=== PATIENT | female | born 1930 | race Caucasian/White ===

== ENCOUNTER 2016-12-21 11:15 | Inpatient (IN) | payer OTHER ==
[~2016-12-21] VITALS: Ht 160 cm; Wt 71.4 kg
[~2016-12-21 11:15] MED LIST: ASPEC81 PO; DOCU-94 PO; TRAM-10 PO; TYLOTC500 PO
[2016-12-21] MEDS ORDERED: NRV/5 PO (11:40)
[2016-12-21] MEDS ORDERED: POTA10CA28 PO (11:42)
[2016-12-21] MEDS ORDERED: SODIUM CHLORIDE 0.9% 1000ML 1,000 ML IV SCH (11:43)
[2016-12-21] MEDS ORDERED: ULT50X PO (11:43)
[2016-12-21] MEDS ORDERED: DICL1GEL12 (11:43)
[2016-12-21] MEDS ORDERED: ASPI81TA28 PO (11:43)
[2016-12-21 11:54] LABS: BASO % 0.2 %; BASO ABS # 0.02 K/uL (0-0.2); COMPLETE YES; EOS % 5.5 %; HEMATOCRIT 39.3 % (37-47); IG% 0.3 %; LYMPH % 14.2 %; LYMPH ABS # 1.54 K/uL (1.2-3.4); MEAN CELL VOLUME 99.5 fL (80-100); MEAN CORPUSCULAR HEMOGLOBIN 32.2 pg (25-34); MEAN CORPUSCULAR HGB CONC 32.3 g/dl (32-36); MEAN PLATELET VOLUME 11.5 fL (7.4-10.4); MONO % 7.5 %; NEUT % 72.3 %; PLATELET COUNT 649 K/uL (130-400); RED BLOOD COUNT 3.95 M/uL (4.2-5.4); WHITE BLOOD COUNT 10.87 K/uL (4.8-10.8)
[2016-12-21 12:06] LABS: URINE APPEARANCE CLEAR (CLEAR); URINE BILIRUBIN NEG (NEG); URINE COLOR YELLOW; URINE NITRITE NEG (NEG); URINE SPECIFIC GRAVITY 1.008 (1.000-1.030); UROBILINOGEN NEG (NEG); ZZURINE CULT IF INDIC CATH NO
[2016-12-21 12:09] LABS: MANUAL MICROSCOPIC REQUIRED? NO; REVIEW REQ? NO
--- NOTE | 2016-12-21 12:12 | DIAGNOSTIC IMAGING REPORT ---
CT HEAD WITHOUT CONTRAST (CT) CLINICAL HISTORY: Stroke SYNCOPE COMPARISON STUDY: 05/02/2015 TECHNIQUE: Axial CT of the brain is performed from the vertex to the skull base. IV contrast was not administered for this examination. CT DOSE: 537.48 mGy.cm FINDINGS: No intra or extra-axial mass lesions are visualized. There is no CT evidence of acute cortical infarction. There is no evidence of midline shift. There is no acute hemorrhage. No calvarial fractures are visualized. There are patchy white matter hypodensities likely on a small vessel basis. There is no evidence of pathologic ventricular dilatation. There is no evidence of acute sinusitis. There is stable prominence of the frontal extra-axial space, likely secondary to volume loss. IMPRESSION: No acute intracranial findings Electronically signed by: James Mosqueda M.D. 12/21/2016 12:10 PM Dictated Date/Time: 12/21/2016 12:09 PM
[2016-12-21 12:15] LABS: INR 1.1 (0.9-1.1); PARTIAL THROMBOPLASTIN RATIO 1.9; PROTHROMBIN TIME (PATIENT) 12.1 SECONDS (9.0-12.0)
[2016-12-21 12:27] LABS: BUN/CREATININE RATIO 30.1 (10-20); CREATININE 1.8 mg/dl (0.60-1.20); POTASSIUM 3.9 mmol/L (3.5-5.1)
[2016-12-21] MEDS ORDERED: CLON2TAB3 PO (12:32)
[2016-12-21 12:35] LABS: CKMB/CK RATIO 3.2 (0-3.0)
[2016-12-21] MEDS ORDERED: CALC-20 PO (12:36)
[2016-12-21] MEDS ORDERED: ATOR-54 PO (12:36)
[2016-12-21] MEDS ORDERED: PANT1TAB48 PO (12:36)
[2016-12-21] MEDS ORDERED: ASPIRIN 81 MG CHEW PO STA (12:41)
[2016-12-21 13:21] LABS: CALCIUM 9.5 mg/dl (8.5-10.1)
[2016-12-21 13:59] VITALS: BP 148/65; PULSE 69; TEMP 36.6; O2SAT 94; Ht 160 cm; Wt 71.4 kg
[2016-12-21] MEDS ORDERED: NITROGLYCERIN 0.4 MG SL PER TAB CHARGE SL PRN (14:45)
[2016-12-21] MEDS ORDERED: ACETAMINOPHEN 325 MG TAB PO PRN (14:45)
[2016-12-21] MEDS ORDERED: ONDANSETRON INJ 2 MG/ML 2 ML VIAL IV PRN (14:45)
[2016-12-21] MEDS ORDERED: MoRPHine SULFATE 2 MG/ML CARP IV PRN (14:45)
[2016-12-21] MEDS ORDERED: POLYETHYLENE (MIRALAX) 17 GM PACK PO PRN (14:45)
[2016-12-21 14:48] VITALS: BP 156/65; PULSE 74; TEMP 36.9; O2SAT 96
[2016-12-21] MEDS ORDERED: ALBU18002 INH (15:06)
[2016-12-21] MEDS ORDERED: ALBUTEROL HFA 8 GM INHALER INH PRN (15:15)
[2016-12-21] MEDS ORDERED: GABA1CAP PO (15:24)
[2016-12-21] MEDS ORDERED: PARO1TAB29 PO (15:24)
--- NOTE | 2016-12-21 15:39 | History and Physical ---
History & Physical Date & Time of Service: December 21, 2016 at 14:49 Chief Complaint: Syncope Primary Care Physician: Rosa Hampton M.D. History of Present Illness Source: patient, family, clinic records 86 yo female with known CAD s/p CABG in 2014 and h/o AV replacement in 2015 for severe presents today after a syncopal episode while standing in her kitchen opening a can. She reports feeling some chest pain for the past 1-2 weeks in her substernal area that she describes as "like a pencil pushing into my chest. " She states this pain started occurring daily and she cannot identify any provoking factors. She states that in getting the pain, she would sit down, rest and take some deep breaths and the pain would subside. She felt some of this chest pain again today after the event. Her son was present and witnessed the fall. He is not here to give the story, but it is being facilitated by her daughter who is also an RN who works here. There was some urinary incontinence and she did lose consciousness but did not hit her head. There appeared to be some confusion and slurred speech initially which cleared. The patient doesn't remember the fall and states that she felt well and was doing laundry this morning without any issues prior to the fall. She reports feeling fine at this time with no chest pain (resolved only after given aspirin upon arrival to the ER) and no neuro deficits, confusion, difficulty speaking or difficulty ambulating at this time. She otherwise denies any other symptoms of recent illnesses or colds, no UTI symptoms, denies nausea, vomiting, diarrhea, abdominal pain. She denies SOB, lightheadedness or diaphoresis with any of the previous chest pain in the past two weeks. She did have some sweating with the syncopal episode this morning. Past Medical/Surgical History Medical Problems: (1) Aortic valve stenosis Permanent Comment: Severe per echo 11/01/2013 Status: Chronic (2) Carotid stenosis Permanent Comment: Per carotid duplex 10/12/2013- 50-69% stenosis of MEHDI, <50% stenosis of LICA Status: Chronic (3) CKD (chronic kidney disease), stage IV Status: Chronic (4) Diastolic dysfunction Permanent Comment: Per echo 11/01/2013- Grade I diastolic dysfunction Status: Chronic (5) DM type 2 (diabetes mellitus, type 2) Status: Chronic (6) Dyslipidemia Status: Chronic (7) Generalized anxiety disorder Status: Chronic (8) Hypertension Status: Chronic (9) Hypothyroidism Status: Chronic (10) Osteoarthritis Status: Chronic (11) Panic disorder Status: Chronic Surgical Problems: (1) H/O heart bypass surgery Permanent Comment: Apr 2015 Status: Chronic (2) Heart valve replaced Permanent Comment: AV replacement in Apr 2015 Status: Chronic (3) History of carpal tunnel surgery Status: Chronic (4) S/P appendectomy Status: Chronic (5) S/P tonsillectomy Status: Chronic Family History Omitted secondary to age Social History Smoking Status: Former Smoker Smokeless Tobacco Use: No Alcohol Use: none Drug Use: none Marital Status: Housing status: lives with family (lives with daughter and ) Occupational Status: retired Immunizations History of Influenza Vaccine: Yes Influenza Vaccine Date: Jun 05, 2016 History of Tetanus Vaccine?: Yes Tetanus Immunization Date: Aug 09, 2006 History of Pneumococcal: Yes Pneumococcal Date: May 24, 2015 History of Hepatitis B Vaccine: No Multi-Drug Resistant Organisms History of MDRO: No Allergies Coded Allergies: Lorazepam (Verified Adverse Reaction, Intermediate, SEVERE CONFUSION/ SEVERE RAGE, 01/28/16) SUE Inhibitors (Verified Adverse Reaction, Unknown, cough, 01/28/16) Home Medications Scheduled Amlodipine Besylate (Amlodipine Besylate), 2.5 MG PO DAILY Aspirin (Aspirin Ec), 81 MG PO DAILY Atorvastatin (Lipitor), 20 MG PO QAM Calcium Carbonate-Vitamin D (Calcium 600 + D), 1 TAB PO QAM Clonazepam (Klonopin), 2 MG PO HS Furosemide (Lasix), 40 MG PO QAM Gabapentin (Neurontin), 100 MG PO BID Levothyroxine Sodium (Synthroid), 100 MCG PO QAM Losartan Potassium (Cozaar), 25 MG PO BID Metoprolol Tartrate (Lopressor), 12.5 MG PO BID Pantoprazole (Protonix), 40 MG PO QAM Paroxetine (Paxil), 40 MG PO QAM Potassium Chloride (Micro-K Ext Rel), 10 MEQ PO QAM Scheduled PRN Albuterol Sulfate (Proair Respiclick), 2 PUFF INH QID PRN for shortness of breath Tramadol HCl (Tramadol HCl), 50 MG PO Q6 PRN for Pain Miscellaneous Medications Diclofenac Sodium (Topical) (Voltaren 1% Top Gel) Review of Systems ten systems reviewed and negative except as stated in HPI Physical Exam Vital Signs Date Time Temp Pulse Resp B/P Pulse Ox O2 Delivery O2 Flow Rate FiO2 12/21/16 13:59 36.6 69 18 148/65 94 Room Air 12/21/16 13:44 82 18 148/65 94 Room Air 12/21/16 13:34 81 12/21/16 12:51 84 20 147/76 97 Room Air 12/21/16 11:33 86 12/21/16 11:30 36.6 89 18 95 Room Air 12/21/16 11:30 95 Room Air 12/21/16 11:30 36.6 89 18 164/79 95 Room Air 157/78 162/75 GEN: WNWD, in no acute distress, alert and appropriate HEENT: NC/AT, PERRL, normal sclerae/conjunctivae, pharynx non acute, MMM, no JVD CARDIO: reg rate, 3/6 MICHOACANO across precordium, very TTP on R anterior chest, and slightly tender on L anterior chest LUNGS: CTA bilaterally, no crackles, rales or wheezes, good diaphragmatic excursion ABD: soft, non-tender, non-distended, +BS EXTREMITY: RP and DP palpable 2+ bilat, no LE swelling or edema, extremities are warm and well-perfused NEURO: CN 2-12 grossly intact, sensation intact throughout, coordination intact (pt is ambulatory by report-not assessed by me) (reflexes) BR 2/4 bilat, knee 2/4 bilat MUSC: 5/5 strength throughout, no focal deficits SKIN: warm and dry Diagnostics Laboratory Results Results Past 24 Hours Test 12/21/16 11:28 12/21/16 11:35 12/21/16 11:42 Range/Units Urine Color YELLOW Urine Appearance CLEAR CLEAR Urine pH 7.0 4.5-7.5 Urine Specific [place] 1.008 1.000-1.030 Urine Protein NEG NEG Urine Glucose (UA) NEG NEG Urine Ketones NEG NEG Urine Occult Blood NEG NEG Urine Nitrite NEG NEG Urine Bilirubin NEG NEG Urine Urobilinogen NEG NEG Urine Leukocyte Esterase NEG NEG White Blood Count 10.87 4.8-10.8 K/uL Red Blood Count 3.95 4.2-5.4 M/uL Hemoglobin 12.7 12.0-16.0 g/dL Hematocrit 39.3 37-47 % Mean Corpuscular Volume 99.5 80-100 fL Mean Corpuscular Hemoglobin 32.2 25-34 pg Mean Corpuscular Hemoglobin Concent 32.3 32-36 g/dl Platelet Count 649 130-400 K/uL Mean Platelet Volume 11.5 7.4-10.4 fL Neutrophils (%) (Auto) 72.3 % Lymphocytes (%) (Auto) 14.2 % Monocytes (%) (Auto) 7.5 % Eosinophils (%) (Auto) 5.5 % Basophils (%) (Auto) 0.2 % Neutrophils # (Auto) 7.86 1.4-6.5 K/uL Lymphocytes # (Auto) 1.54 1.2-3.4 K/uL Monocytes # (Auto) 0.82 0.11-0.59 K/uL Eosinophils # (Auto) 0.60 0-0.5 K/uL Basophils # (Auto) 0.02 0-0.2 K/uL RDW Standard Deviation 51.3 36.4-46.3 fL RDW Coefficient of Variation 14.1 11.5-14.5 % Immature Granulocyte % (Auto) 0.3 % Immature Granulocyte # (Auto) 0.03 0.00-0.02 K/uL Prothrombin Time 12.1 9.0-12.0 SECONDS Prothromb Time International Ratio 1.1 0.9-1.1 Activated Partial Thromboplast Time 48.5 21.0-31.0 SECONDS Partial Thromboplastin Ratio 1.9 Sodium Level 139 136-145 mmol/L Potassium Level 3.9 3.5-5.1 mmol/L Chloride Level 102 98-107 mmol/L Carbon Dioxide Level 27 21-32 mmol/L Anion Gap 10.0 3-11 mmol/L Blood Urea Nitrogen 54 7-18 mg/dl Creatinine 1.80 0.60-1.20 mg/dl Est Creatinine Clear Calc Drug Dose 21.3 ml/min Estimated GFR () 29.0 Estimated GFR (Non- 25.0 BUN/Creatinine Ratio 30.1 10-20 Random Glucose 122 70-99 mg/dl Calcium Level 9.5 8.5-10.1 mg/dl Total Creatine Kinase 211 26-192 U/L Creatine Kinase MB 6.8 0.5-3.6 ng/ml Creatine Kinase MB Ratio 3.2 0-3.0 Troponin I 0.971 0-0.045 ng/ml Bedside Glucose 111 70-90 mg/dl Microbiology Results 12/21/16 Urine Culture, Received Pending Diagnostic Radiology CT HEAD WITHOUT CONTRAST (CT) CLINICAL HISTORY: Stroke SYNCOPE COMPARISON STUDY: 05/02/2015 TECHNIQUE: Axial CT of the brain is performed from the vertex to the skull base. IV contrast was not administered for this examination. CT DOSE: 537.48 mGy.cm FINDINGS: No intra or extra-axial mass lesions are visualized. There is no CT evidence of acute cortical infarction. There is no evidence of midline shift. There is no acute hemorrhage. No calvarial fractures are visualized. There are patchy white matter hypodensities likely on a small vessel basis. There is no evidence of pathologic ventricular dilatation. There is no evidence of acute sinusitis. There is stable prominence of the frontal extra-axial space, likely secondary to volume loss. IMPRESSION: No acute intracranial findings CXR pending EKG SR, 1AVB, oc PVCs, non-specific conduction block with known h/o LBBB per outpatient cardiology notes. Impression Assessment and Plan 86 yo F with h/o aortic valve replacement and CABG in 2014 presents with syncope this morning 1. Syncope-uncertain cause but etiologies include but not limited to ACS, cardiac arrhythmia, valve abnormality, vasovagal or orthostatic hypotension ( uncertain trigger). The patient is confirmed by daughter who is a nurse that she is not a diabetic, so not on insulin but she was preparing breakfast so might have been hypoglycemic. Ongoing chest pain for past two weeks is concerning for unstable angina and pain is reproducible to palpation. With known history will start empiric heparin drip (TRS is 6), increase Lipitor to 80mg now for plaque stabilization, cont with ASA, cont BB and consult cardiology. Will cont to monitor on telemetry and defer repeat echo evaluation to Cardiology. Of note, there was some possible slurred speech noted today after syncopal episode, however, there was nothing noted that was a focal finding and she is completely neurologically intact at this time, and ambulatory with a negative head CT, so stroke not thought probable at this time. 2. CAD-plan as above. 3. s/p aortic valve replacement 4. CKD-III- creatinine at baseline 5. HTN-controlled on outpatient therapy, defer changes to Cards team 6. Hypothyroidism-will add TSH to bloodwork. Cont Synthroid at current home dose. 7. Gerd-cont PPI 8. Anxiety/panic disorder-cont Clonazepam qHS per home regimen DVT proph-heparin drip FULL CODE Dispo-on quality assurance monitor final Adore Mart [facility] Telemetry Advanced Directives Existing Living Will: Yes Existing Power of Fiberglass Grinder: Yes Resuscitation Status FULL RESUSCITATION VTE Prophylaxis VTE Risk Assessment Done? Y/N: Yes Risk Level: Moderate Given or contraindicated: Other Anticoagulation (heparin drip)
[2016-12-21 15:42] VITALS: BP 155/63; PULSE 68; TEMP 36.7; O2SAT 94
[2016-12-21] MEDS ORDERED: FURO-85 PO (15:44)
[2016-12-21] MEDS ORDERED: LOSA1TAB PO (15:45)
[2016-12-21] MEDS ORDERED: LEVO100T PO (15:45)
[2016-12-21] MEDS ORDERED: LPR25 PO (15:46)
--- NOTE | 2016-12-21 15:48 | DIAGNOSTIC IMAGING REPORT ---
CHEST ONE VIEW PORTABLE CLINICAL HISTORY: Chest pain and syncope COMPARISON STUDY: 01/28/2016 FINDINGS: There are postsurgical changes of a midline sternotomy. The heart is borderline enlarged. There is no failure. There is no focal pulmonary consolidation. No pleural effusions are visualized.[ IMPRESSION: No active disease in the chest. Electronically signed by: James Mosqueda M.D. 12/21/2016 3:47 PM Dictated Date/Time: 12/21/2016 3:46 PM
[2016-12-21] MEDS: HEPARIN 25,000 UNIT/500ML D5W 500 ML IV PRN (15:59)
[2016-12-21 16:02] LABS: BASO % 0.3 %; BASO ABS # 0.03 K/uL (0-0.2); EOS % 2.1 %; HEMATOCRIT 37.1 % (37-47); IG% 0.2 %; LYMPH % 8.6 %; MEAN CELL VOLUME 98.4 fL (80-100); MEAN CORPUSCULAR HEMOGLOBIN 31.3 pg (25-34); MEAN PLATELET VOLUME 10.7 fL (7.4-10.4); MONO % 6.2 %; NEUT % 82.6 %; PLATELET COUNT 588 K/uL (130-400); RED BLOOD COUNT 3.77 M/uL (4.2-5.4); WHITE BLOOD COUNT 11.65 K/uL (4.8-10.8)
[2016-12-21 16:03] LABS: COMPLETE YES; MEAN CORPUSCULAR HGB CONC 31.8 g/dl (32-36)
[2016-12-21 16:18] LABS: INR 1.2 (0.9-1.1); PARTIAL THROMBOPLASTIN RATIO 2.1; PROTHROMBIN TIME (PATIENT) 12.4 SECONDS (9.0-12.0)
[2016-12-21] MEDS ORDERED: NURSING VERBAL MED ORDER ONE (16:45)
--- NOTE | 2016-12-21 16:55 | EMERGENCY ROOM VISIT NOTE ---
History Report prepared by Salvador: Carla Martinez Under the Supervision of: Dr. Taye Ruggiero M.D. 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 Per family, the patient had a syncopal episode this morning and fell backwards. Her did not think that she was breathing. Family is unsure if she hit her head when she fell. EMS was called and the patient was lying on the floor gasping when they arrived. She regained consciousness. The patent states that she feels better now. She is currently complaining of some chest pain, dizziness, weakness, and "plugged" ears. Family reports that she has some slurred speech. Daughter states that the patient has been doing well over the past few days. The patient does have a history of a prosthetic valve replacement. 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 Family reports slurred speech. Review of Systems See HPI for pertinent positives and negatives. A total of ten systems were reviewed and were otherwise negative. Past Medical & Surgical Medical Problems: (1) Aortic valve stenosis (2) Carotid stenosis (3) CKD (chronic kidney disease), stage IV (4) Diastolic dysfunction (5) DM type 2 (diabetes mellitus, type 2) (6) Dyslipidemia (7) Generalized anxiety disorder (8) Hypertension (9) Hypothyroidism (10) Osteoarthritis (11) Panic disorder (12) Syncope and collapse Surgical Problems: (1) H/O heart bypass surgery (2) Heart valve replaced (3) History of carpal tunnel surgery (4) Post-operative state (5) S/P appendectomy (6) S/P tonsillectomy Family History Omitted secondary to age Social History Smoking Status: Former Smoker Alcohol Use: none Marital Status: Housing Status: lives with family Current/Historical Medications Scheduled Amlodipine Besylate (Amlodipine Besylate), 2.5 MG PO DAILY Aspirin (Aspirin Ec), 81 MG PO DAILY Atorvastatin (Lipitor), 20 MG PO QAM Calcium Carbonate-Vitamin D (Calcium 600 + D), 1 TAB PO QAM Clonazepam (Klonopin), 2 MG PO HS Furosemide (Lasix), 40 MG PO QAM Gabapentin (Neurontin), 100 MG PO BID Levothyroxine Sodium (Synthroid), 100 MCG PO QAM Losartan Potassium (Cozaar), 25 MG PO BID Metoprolol Tartrate (Lopressor), 12.5 MG PO BID Pantoprazole (Protonix), 40 MG PO QAM Paroxetine (Paxil), 40 MG PO QAM Potassium Chloride (Micro-K Ext Rel), 10 MEQ PO QAM Scheduled PRN Albuterol Sulfate (Proair Respiclick), 2 PUFF INH QID PRN for shortness of breath Tramadol HCl (Tramadol HCl), 50 MG PO Q6 PRN for Pain Miscellaneous Medications Diclofenac Sodium (Topical) (Voltaren 1% Top Gel) Allergies Coded Allergies: Lorazepam (Verified Adverse Reaction, Intermediate, SEVERE CONFUSION/ SEVERE RAGE, 01/28/16) SUE Inhibitors (Verified Adverse Reaction, Unknown, cough, 01/28/16) Physical Exam Vital Signs Date Time Temp Pulse Resp B/P Pulse Ox O2 Delivery O2 Flow Rate FiO2 12/21/16 12:51 84 20 147/76 97 Room Air 12/21/16 11:33 86 12/21/16 11:30 36.6 89 18 95 Room Air 12/21/16 11:30 95 Room Air 12/21/16 11:30 36.6 89 18 164/79 95 Room Air 157/78 162/75 Physical Exam GENERAL: Awake, alert, tired-appearing, in no distress HENT: Normocephalic, atraumatic. Oropharynx unremarkable. Dry mucus membranes. EYES: Normal conjunctiva. Sclera non-icteric. PERRL, EOMI NECK: Supple. No nuchal rigidity. FROM. No JVD. RESPIRATORY: Clear to auscultation. CARDIAC: Regular rate, normal rhythm. Systolic ejection murmur. Extremities warm and well perfused. Pulses equal. ABDOMEN: Soft, non-distended. No tenderness to palpation. No rebound or guarding. No masses. RECTAL: Deferred. MUSCULOSKELETAL: Chest examination reveals no tenderness. The back is symmetrical on inspection without obvious abnormality. There is no CVA tenderness to palpation. No joint edema. LOWER EXTREMITIES: Calves are equal size bilaterally and non-tender. No edema. No discoloration. NEURO: Normal sensorium. No sensory or motor deficits noted. No drift. Cranial nerves intact. SKIN: No rash or jaundice noted. Medical Decision & Procedures ER Provider Diagnostic Interpretation: A repeat ECG reveals sinus rhythm with 1st degree AV block at 80, rightward axis , nonspecific intraventricular block, nonspecific ST abnormality inferiorly, mild ST elevation anteriorly, unchanged from previous. Radiology results as stated below per my review and radiologist interpretation: CT HEAD WITHOUT CONTRAST (CT) CLINICAL HISTORY: Stroke SYNCOPE COMPARISON STUDY: 05/02/2015 TECHNIQUE: Axial CT of the brain is performed from the vertex to the skull base. IV contrast was not administered for this examination. CT DOSE: 537.48 mGy.cm FINDINGS: No intra or extra-axial mass lesions are visualized. There is no CT evidence of acute cortical infarction. There is no evidence of midline shift. There is no acute hemorrhage. No calvarial fractures are visualized. There are patchy white matter hypodensities likely on a small vessel basis. There is no evidence of pathologic ventricular dilatation. There is no evidence of acute sinusitis. There is stable prominence of the frontal extra-axial space, likely secondary to volume loss. IMPRESSION: No acute intracranial findings Electronically signed by: James Mosqueda M.D. 12/21/2016 12:10 PM Dictated Date/Time: 12/21/2016 12:09 PM Laboratory Results 12/21/16 11:35 Test 12/21/16 11:28 12/21/16 11:35 12/21/16 11:42 Urine Color YELLOW Urine Appearance CLEAR (CLEAR) Urine pH 7.0 (4.5-7.5) Urine Specific [place] 1.008 (1.000-1.030) Urine Protein NEG (NEG) Urine Glucose (UA) NEG (NEG) Urine Ketones NEG (NEG) Urine Occult Blood NEG (NEG) Urine Nitrite NEG (NEG) Urine Bilirubin NEG (NEG) Urine Urobilinogen NEG (NEG) Urine Leukocyte Esterase NEG (NEG) Anion Gap 10.0 mmol/L (3-11) Est Creatinine Clear Calc Drug Dose 21.3 ml/min Estimated GFR () 29.0 Estimated GFR (Non- 25.0 BUN/Creatinine Ratio 30.1 (10-20) Calcium Level 9.5 mg/dl (8.5-10.1) Total Creatine Kinase 211 U/L (26-192) Creatine Kinase MB 6.8 ng/ml (0.5-3.6) Creatine Kinase MB Ratio 3.2 (0-3.0) Troponin I 0.971 ng/ml (0-0.045) Thyroid Stimulating Hormone (TSH) 1.490 uIu/ml (0.300-4.500) Bedside Prothrombin Time INR 1.1 (0.9-1.1) Bedside Glucose 111 mg/dl (70-90) Laboratory results reviewed by me Medications Administered Medications (Trade) Dose Ordered Sig/Carlos Alberto Route Start Time Stop Time Status Last Admin Dose Admin Sodium Chloride (Nss 1000ml) 1,000 ml @ 50 mls/hr Q20H IV 12/21/16 11:43 12/21/16 15:01 DC 12/21/16 11:43 50 MLS/HR Aspirin (Aspirin Chew) 324 mg NOW STAT PO 12/21/16 12:41 12/21/16 12:42 DC 12/21/16 12:56 324 MG ECG Indication: syncope Rate (beats per minute): 86 Rhythm: sinus rhythm Findings: 1st degree AV block, nonspecific-ST abn (Inferior), ST elevation (V2 , V3), other (nonspecific intraventricular block) Comparison ECG Date: 01/28/16 Change: Mild ST elevation in V2 and V3 slightly more prominent, inferior changes are new. ED Course 1139: The patient was evaluated in room C2B. A complete history and physical exam was performed. 1143: NSS 1000 ml @ 50 mls/hr IV 1240: I reevaluated the patient and updated her and the family. 1241: Aspirin 324 mg PO 1257: I spoke with Dr. Mart. We discussed the patient's results and treatment plan. [facility]. 1304: I reassessed the patient at this time. She is feeling better and resting comfortably. I discussed the results and treatment plan with the patient and her family. I answered all pertaining questions that they had. They expressed understanding and verbalized agreement. Medical Decision Triage Nursing notes reviewed. The patient's presentation and history were concerning for syncope and difficulty breathing. Etiologies such as vasovagal event, infection, hypoglycemia, electrolyte abnormalities, cardiac sources, intracerebral event, toxicologic, neurologic, as well as others were entertained. The patient was evaluated. Her history was concerning for a syncopal event. Physically she had no focal neurologic findings to suggest stroke. She underwent a workup which revealed her to have elevated cardiac markers. Her urinalysis and chemistry panel were unremarkable. She had a slight elevation of her white blood cell count. Imaging did not reveal any abnormalities. ECG was performed and was unchanged. Her second ECG was done when she had no chest symptoms. She only noted minimal discomfort at the time of the first ECG. She was given aspirin. She was gently hydrated with fluids. Internal medicine was consulted. Patient's family were updated. She will need further evaluation and management in the hospital. The chart was completed utilizing [employer] Speech voice recognition software. Grammatical errors, random word insertions, pronoun errors, and incomplete sentences are an occasional consequence of this system due to software limitations, ambient noise, and hardware issues. Any formal questions or concerns about the content, text, or information contained within the body of this dictation should be directly addressed to the physician for clarification. Consults Time Called: [phone] Consulting Physician: Dr. Mart Returned Call: [phone] Mart. We discussed the patient's results and treatment plan. The patient will be evaluated by the [facility] for further management. Impression Primary Impression: Syncope Additional Impression: Elevated troponin Scribe Attestation The scribe's documentation has been prepared under my direction and personally reviewed by me in its entirety. I confirm that the note above accurately reflects all work, treatment, procedures, and medical decision making performed by me. Departure Information Dispostion Being Evaluated By Hospitalist Referrals Rosa Hampton M.D. (PCP) Patient Instructions My [facility] Problem Qualifiers Primary Impression: Syncope Syncope type: unspecified Qualified Codes: R55 - Syncope and collapse
[2016-12-21 18:43] LABS: CKMB/CK RATIO 10.2 (0-3.0)
[2016-12-21 20:20] VITALS: BP 148/57; PULSE 56; TEMP 36.8; O2SAT 94
[2016-12-21] MEDS: CALCIUM 600MG + VIT D 400 IU TAB PO SCH (20:45)
[2016-12-21] MEDS: ATORVASTATIN 40 MG TAB PO SCH (20:45)
[2016-12-21] MEDS: GABAPENTIN 100 MG CAP PO SCH (20:46)
[2016-12-21] MEDS: LOSARTAN POTASSIUM 25 MG TAB PO SCH (20:47)
[2016-12-21] MEDS: CLONAZEPAM 1 MG TAB PO SCH (20:48)
[2016-12-21] MEDS: METOPROLOL TARTRATE 25 MG TAB PO SCH (20:51)
[2016-12-21] MEDS ORDERED: HEPARIN SOD 5000 UNIT/0.5 ML CARP SQ SCH (22:00)
[2016-12-21 23:14] LABS: PARTIAL THROMBOPLASTIN RATIO 8.9
[2016-12-22] VITALS (7 sets, daily range): BP systolic 128–161; BP diastolic 56–69; PULSE 55–66; TEMP 36.3–36.8; O2SAT 93–95
[2016-12-22 00:09] LABS: CKMB/CK RATIO 11.6 (0-3.0)
[2016-12-22] MEDS: TRAMADOL HCL 50 MG TAB PO PRN ×2 (00:22→20:32)
[2016-12-22 00:42] LABS: PARTIAL THROMBOPLASTIN RATIO 9.2
[2016-12-22 03:02] LABS: PARTIAL THROMBOPLASTIN RATIO 2.4
[2016-12-22] MEDS: HEPARIN 25,000 UNIT/500ML D5W 500 ML IV PRN ×3 (03:10→20:34)
[2016-12-22] MEDS: LEVOTHYROXINE 100 MCG TAB PO SCH (06:26)
[2016-12-22 06:46] LABS: MEAN CELL VOLUME 99.4 fL (80-100); MEAN CORPUSCULAR HEMOGLOBIN 32.2 pg (25-34); MEAN CORPUSCULAR HGB CONC 32.4 g/dl (32-36); MEAN PLATELET VOLUME 11.2 fL (7.4-10.4); PLATELET COUNT 547 K/uL (130-400); RED BLOOD COUNT 3.42 M/uL (4.2-5.4); WHITE BLOOD COUNT 8.85 K/uL (4.8-10.8)
[2016-12-22 07:22] LABS: CREATININE 1.7 mg/dl (0.60-1.20)
[2016-12-22 07:23] LABS: BUN/CREATININE RATIO 29.7 (10-20); CALCIUM 9.2 mg/dl (8.5-10.1); CHOLESTEROL/HDL RATIO 2.7; MAGNESIUM 2.6 mg/dl (1.8-2.4); POTASSIUM 3.8 mmol/L (3.5-5.1)
[2016-12-22] MEDS ORDERED: ASPIRIN 81 MG ECTAB PO SCH (09:00)
[2016-12-22] MEDS: METOPROLOL TARTRATE 25 MG TAB PO SCH (09:00)
[2016-12-22] MEDS ORDERED: NURSING VERBAL MED ORDER ONE (10:00)
[2016-12-22] MEDS: GABAPENTIN 100 MG CAP PO SCH ×2 (10:05→20:35)
[2016-12-22] MEDS: PAROXETINE 20 MG TAB PO SCH (10:05)
--- NOTE | 2016-12-22 10:05 | Clinical Documentation Query ---
GEE Handley : CLINICAL DOCUMENTATION QUERIES QUERY 1 OF 2 Patient is an 86 year old female admitted s/p syncopal episode occuring the morning of admission at her home. Also noted to have experienced chest pain substernally over the past two weeks, and specifically occurring today after the syncopal event. She was given ASA and maintained on a BB with pending cardiology consultation. A heparin infusion was initiated. Initial cardiac enzymes elevated with troponin of 0.971 ng/ml, further rising to 15.00 ng/ml last evening. Echocardiogram pending. Per ED provider, EKG "Mild ST elevation in V2 and V3 slightly more prominent, inferior changes are new." In your clinical opinion is this patient being managed for: ( ) Non-ST elevation myocardial infarction ( ) STEMI ( ) Other explanation of clinical findings (Please Explain) ( ) Unable to determine (Please Define) ( ) Need to Discuss ( ) Not Agree The medical record reflects the following clinical findings, treatment, and risk factors. Clinical Indicators: As above Treatment:She was given ASA and maintained on a BB with pending cardiology consultation. A heparin infusion was initiated. Initial cardiac enzymes elevated with troponin of 0.971 ng/ml, further rising to 15.00 ng/ml last evening. Echocardiogram pending. Telemetry, cardiology consultation Risk Factors: Age, CAD, hyperlipidemia, DM type 2, hypertension QUERY 2 OF 2 Documentation includes "diastolic dysfunction". Prior echocardiogram (03/15/15) read to include: "1. Left ventricle is mildly dilated with mild LVH. 2. LVEF has decreased, 25-30% with mid to apical areas of akinesis, including the apex. 3. Severe calcific aortic stenosis. Mean gradient 46mmHg, RADHA 0.6cm2. 4. Diastolic dysfunction." Home regimen includes daily Lasix, amlodipine, losartan, and lopressor. As appropriate, please clarify as this directly impacts DRG assignment. Thank you. In your clinical opinion is this patient being managed for: ( ) Chronic combined systolic and diastolic congestive heart failure ( ) Other explanation of clinical findings (Please Explain) ( ) Unable to determine (Please Define) ( ) Need to Discuss ( ) Not Agree The medical record reflects the following clinical findings, treatment, and risk factors. Clinical Indicators: As above, known CAD with known LBBB, "diastolic dysfunction". Treatment: Lasix, amlodipine, losartan, and lopressor, telemetry, cardiology consultation Risk Factors: Age, hypertension, CAD, s/p AVR Please clarify and document your clinical opinion in the progress notes and discharge summary. Terms such as "probable", "suspected", "likely", "questionable", "possible", or "still to be ruled out" are acceptable. IF IN AGREEMENT, YOU MUST DOCUMENT ABOVE DIAGNOSTIC STATEMENT IN DAILY PROGRESS NOTES AND DISCHARGE SUMMARY. This document is not part of the patient's record. Thank You, Frandy Edmond, RN [phone]
[2016-12-22] MEDS: AMLODIPINE BESYLATE 5 MG TAB PO SCH (10:06)
[2016-12-22] MEDS: CALCIUM 600MG + VIT D 400 IU TAB PO SCH ×2 (10:07→20:35)
[2016-12-22] MEDS: FUROSEMIDE 40 MG TAB PO SCH (10:07)
[2016-12-22] MEDS: LOSARTAN POTASSIUM 25 MG TAB PO SCH ×2 (10:07→20:36)
[2016-12-22] MEDS: PANTOprazole SOD 40 MG TAB PO SCH (10:08)
[2016-12-22] MEDS: POTASSIUM CHLORIDE 10 MEQ TABCR PO SCH (10:08)
[2016-12-22] MEDS: ASPIRIN 81 MG ECTAB PO SCH (10:08)
[2016-12-22 10:11] LABS: PARTIAL THROMBOPLASTIN RATIO 6.2
--- NOTE | 2016-12-22 12:12 | CARDIOLOGY CONSULTATION REPORT ---
DATE OF CONSULTATION: 12/22/2016 REASON FOR CONSULTATION: 1. Syncope. 2. Elevated troponin I level. HISTORY OF PRESENT ILLNESS: Ms. Cooper is a very pleasant 86-year-old white female with a longstanding history of aortic valvular stenosis s/p Hernández pericardial AVR 19 mm in 2014, CABG x 3 vessels (GRAHAM to LAD, SVG to OM, and SVG to distal RCA), h/o Cardiomyopathy (EF 25% to 30% in 2014), Hypertension, Hypercholesterolemia, impaired glucose tolerance, and a chronic LBBB, who was admitted acutely on 12/21/2016 following a syncopal episode. Yesterday morning while standing in the kitchen at the sink, doing some work, the patient began to feel "funny." She described as a dizzying sensation and a period of decreased mental clarity/fogginess. She was found as though she needed to sit down. When she turned to go to a chair, she suddenly collapsed on to the floor and sustained a minor bump to the head. She has a small hematoma on the posterior scalp; however, a CT scan was negative. The patient is uncertain how long she was out for, but her was the only witness and he had to go outside to find his son-in-law to come back in and help with Ms. Cooper. Uncertain how long she was unconscious, but most likely for more than a couple of minutes. She subsequently came back around, was sweating profusely, and was mildly confused. The patient does admit to reproducible anterior chest wall pain, which has been present for some time, and that has not changed recently. It is reproducible with palpation. She has not had any "angina," but she did have a significant bump in her troponin I level. The patient offers no other complaints. MEDICATIONS: 1. Aspirin 81 mg a day. 2. Norvasc 2.5 mg daily. 3. Lasix 40 mg daily. 4. Protonix 40 mg daily. 5. Paxil 40 mg daily. 6. KCl 10 mEq daily. 7. Levothyroxine 100 mcg daily. 8. Klonopin 2 mg at bedtime. 9. Neurontin 100 mg b.i.d. 10. Cozaar 25 mg b.i.d. 11. Lopressor 12.5 mg b.i.d. 12. Lipitor 80 mg at bedtime. 13. Vitamin D with calcium 1 tablet b.i.d. 14. Heparin drip. 15. Tramadol 50 mg p.o. q. 6 hours p.r.n. 16. Albuterol 2 puffs p.o. q.i.d. p.r.n. 17. Tylenol p.r.n. 18. Zofran 4 mg IV q. 6 hours p.r.n. 19. Sublingual nitroglycerin p.r.n. 20. Morphine sulfate 2 mg IV q. 2 hours p.r.n. for chest pain. 21. MiraLax p.r.n. ALLERGIES: 1. SUE INHIBITORS. 2. LORAZEPAM. PAST MEDICAL HISTORY: 1. Hypertension. 2. Dyslipidemia. 3. History of aortic stenosis, status post Hernández Magna 19-mm pericardial tissue AVR on 04/26/2015. 4. CAD, status post CABG x3 vessels on 04/26/2015 including GRAHAM to LAD, saphenous vein graft to OM, and saphenous vein graft to distal RCA. 5. Impaired glucose tolerance. 6. Chronic LBBB. 7. Diastolic dysfunction. 8. Hypothyroidism. 9. DJD. 10. Right hip greater trochanteric bursitis. 11. Carotid artery disease. 12. Syncope. 13. History of carpal tunnel release. 14. History of appendectomy. 15. History of tonsillectomy. 16. Cardiomyopathy on echo 2014. SOCIAL HISTORY: The patient is and lives with her . She is a former smoker. Does not use alcohol. FAMILY HISTORY: Noncontributory. PHYSICAL EXAMINATION: VITAL SIGNS: Temperature is 36.7 degrees Celsius, pulse 55 and regular, respiratory rate 18 and unlabored, and blood pressure 152/69. SpO2 is 95% on room air. GENERAL: The patient is in no acute distress. HEENT: A small hematoma is present on the posterior scalp near the vertex. EOMs intact. Sclerae are anicteric. Mucous membranes moist. Face is symmetric. NECK: Without thyromegaly, adenopathy, or JVD. Carotid upstrokes +2 bilaterally. CHEST AND LUNGS: Clear to auscultation throughout all lung stewart. No wheezes, rales or rhonchi. CARDIOVASCULAR SYSTEM: S1 and S2 are regular, bradycardic, with a grade 2/6 crescendo-decrescendo basal systolic murmur best heard over right second intercostal space and radiates to the upper chest and left sternal border. Aortic valve closure sound is audible at both the apex and the base. PMI is not displaced. No lifts, heaves, or thrills. No abdominal aortic or renal bruits. ABDOMEN: Benign. EXTREMITIES: No clubbing, cyanosis or edema. Right greater trochanter tender to palpation. NEUROLOGIC: The patient is awake, alert and interactive. Answers questions appropriately. Speech is clear. Normal movement in bilateral upper and lower extremities. LABORATORY DATA: Sodium is 140 mmol/L, potassium 3.8 mmol/L, BUN 51 mg/dL, creatinine 1.70 mg/dL, random glucose is 113 mg/dL, and serum magnesium 2.6 mg/dL. Total CKs are 519, 383, and 211 units per liter with respect to the CK-MBs of 60.1, 39.2, and 6.8. ng/mL. Troponin I levels are 15.0, 7.010, and 0.971 ng/mL. APTT is 62.7 seconds. TSH on admission was 1.490 uIU/mL. Total cholesterol is 167 mg/dL with an LDL of 84 mg/dL and an HDL of 61 mg/dL. Chest x-ray shows no acute processes. Head CT scan showed no intracranial abnormalities. Telemetry monitoring overnight reveals periods of Mobitz type 2 second degree AV block with significant bradycardia, ventricular rate in the 30s. No longer pauses were present. Echocardiogram is pending. ASSESSMENT: 1. Syncope, likely secondary to Mobitz type 2 second degree AV block, and possibly higher grades of AV block. Need to re-evaluate LV systolic function with repeat echo. 2. Non ST-elevated myocardial infarction by cardiac enzymes, possibly secondary to her syncopal event and significant bradycardia/cardiac pauses. 3. Hypertension. 4. Dyslipidemia. 5. Carotid artery disease. 6. History of Bioprosthetic AVR (Hernández Magna 19-mm pericardial AVR). 7. CAD s/p CABG x 3 vessels in 2014. 8. H/O Cardiomyopathy. 9. Diagnoses mentioned above. PLAN: 1. Discussed with Dr. Castellon, who will also meet with the patient. 2. At this point, the patient has significant evidence of conductive heart disease, which is quite common in patients with known aortic valve disease. I have explained this condition at length with the patient and she verbalized understanding. 3. At this point, the treatment of choice is placement of a dual-chamber pacemaker vs possible AICD (depending on LVEF). I have explained to her how these procedures are done. 4. The patient verbalized understanding on this discussion and agrees to proceed. Her daughter is also present throughout the visit. 5. Continue long-term beta darion, angiotensin receptor darion, high dose statin, aspirin, and calcium-channel darion. 6. Continue Lasix and potassium chloride as directed. 7. May continue heparin drip for the time being. However, would recommend holding heparin 6 hours before appointed pacemaker / AICD placement time. 8. N.p.o. after midnight except for medications due to pacemaker / AICD being placed. 9. We will continue to follow along while hospitalized. BARRIE
[2016-12-22 12:13] LABS: PARTIAL THROMBOPLASTIN RATIO 2.6
--- NOTE | 2016-12-22 14:14 | ECHOCARDIOGRAM REPORT ---
*NOTICE TO RECEIVING LIBERTARIAN AGENCY This information is strictly Confidential and protected under [place] law. [place] law prohibits you from making any further disclosure of this information unless further disclosure is expressly permitted by the written consent of the person to whom it pertains or is authorized by law. A general authorization for the release of medical or other information is not sufficient for this purpose. Hospital accepts no responsibility if the information is made available to any other person, INCLUDING THE PATIENT. Interpretation Summary * Name: PEREZ MEEKS Study Date: 12/22/2016 12:54 PM BP: 143/60 mmHg * Patient Location: [facility]\S\N281\S\1 HR: 67 * : 1930 (M/d/yyyy) Gender: Female Height: 63 in * Age: 86 yrs Ethnicity: [place] Weight: 152 lb * Ordering Physician: Bereket Houser * Referring Physician: Self, Referred * Performed By: Radha Tompkins RCS * * Reason For Study: CAD / LBBB / CARDIOMYOPATHY / NSTEMI * BSA: 1.7 m2 * -- Conclusions -- * There is mild concentric left ventricular hypertrophy. * Left ventricular systolic function is normal. * Grade I diastolic dysfunction, (abnormal relaxation pattern). * The left atrium is moderately dilated. * There is a bioprosthetic aortic valve. * Moderate valvular aortic stenosis. * The transvalvular gradient is high for this valve. * There is moderate mitral annular calcification. * Right ventricular systolic pressure is normal. Procedure Details * A complete two-dimensional transthoracic echocardiogram was performed (2D, M-mode, Doppler and color flow Doppler). Left Ventricle * The left ventricle is normal in size. * There is mild concentric left ventricular hypertrophy. * Left ventricular systolic function is normal. * Ejection Fraction = 55-60%. * Grade I diastolic dysfunction, (abnormal relaxation pattern). * Septal motion is consistent with post-operative state. Right Ventricle * The right ventricle is normal in size and function. Atria * The left atrium is moderately dilated. * The right atrium is mildly dilated. Mitral Valve * There is moderate mitral annular calcification. * Significant mitral regurgitation is absent. Tricuspid Valve * The tricuspid valve is not well visualized, but is grossly normal. * There is mild tricuspid regurgitation. * Right ventricular systolic pressure is normal. Aortic Valve * Moderate valvular aortic stenosis. * There is a bioprosthetic aortic valve. * The transvalvular gradient is high for this valve. Pericardium/Pleural * There is no pericardial effusion. Great Vessels * Normal inferior vena cava diameter and respiratory variation suggests normal central venous pressure. MMode 2D Measurements and Calculations IVSd 1.4 cm IVSs 1.3 cm LVIDd 4.1 cm LVIDs 3.9 cm LVPWd 1.4 cm LVPWs 1.6 cm IVS/LVPW 1.0 FS 5.0 % EDV(Teich) 73.7 ml ESV(Teich) 65.3 ml EF(Teich) 11.4 % EDV(cubed) 68.3 ml ESV(cubed) 58.6 ml EF(cubed) 14.1 % % IVS thick -3.38 % % LVPW thick 16.7 % LV mass(C)d 207.0 grams LV mass(C)dI 120.3 grams/m\S\2 LV mass(C)s 212.5 grams LV mass(C)sI 123.5 grams/m\S\2 SV(Teich) 8.4 ml SI(Teich) 4.9 ml/m\S\2 SV(cubed) 9.7 ml SI(cubed) 5.6 ml/m\S\2 LVOT diam 1.6 cm LVOT area 2.0 cm\S\2 Doppler Measurements and Calculations MV E max jax 124.0 cm/sec MV A max jax 133.7 cm/sec MV E/A 0.93 MV P1/2t max jax 121.2 cm/sec MV P1/2t 93.1 msec MVA(P1/2t) 2.4 cm\S\2 MV dec slope 381.4 cm/sec\S\2 MV dec time 0.28 sec Ao V2 max 339.3 cm/sec Ao max PG 46.0 mmHg Ao max PG (full) 34.0 mmHg Ao V2 mean 230.5 cm/sec Ao mean PG 24.5 mmHg Ao mean PG (full) 17.9 mmHg Ao V2 VTI 77.9 cm RADHA(I,A) 1.1 cm\S\2 RADHA(I,D) 1.1 cm\S\2 RADHA(V,A) 1.0 cm\S\2 RADHA(V,D) 1.0 cm\S\2 LV V1 max PG 12.1 mmHg LV V1 mean PG 6.6 mmHg LV V1 max 173.6 cm/sec LV V1 mean 117.1 cm/sec LV V1 VTI 42.3 cm SV(LVOT) 82.9 ml SI(LVOT) 48.1 ml/m\S\2 PA V2 max 193.0 cm/sec PA max PG 14.9 mmHg TR max jax 254.2 cm/sec
--- NOTE | 2016-12-22 16:35 | Progress Note ---
Internal Med Progress Note Date of Service: December 22, 2016. Provider Documentation: SUBJECTIVE: The patient was seen and examined Denies any symptoms Feels better clinically OBJECTIVE: Vital Signs-as noted below Exam: General-no distress at rest Eyes-normal ENT-normal; Neck-supple Lungs-Clear to auscultate bilaterally Heart-Regular,2/6 ESM AA Abdomen-Benign no masses,bowel sound present Extremities-No edema Neuro-AAOx3 Lab data as noted below. ASSESSMENT & PLAN: Syncope Likely secondary to Mobitz Type II AV block No o more episode since admission Appreciate cardiology input Going to have PPM tomorrow NSTEMI with H/O . CAD s/p CABG x 3 vessels in 2014 Serial Troponin and CK/CKMB elevated significantly Has NSTEMI ECHO::There is mild concentric left ventricular hypertrophy. * Left ventricular systolic function is normal. * Grade I diastolic dysfunction, (abnormal relaxation pattern). * The left atrium is moderately dilated. * There is a bioprosthetic aortic valve. * Moderate valvular aortic stenosis. * The transvalvular gradient is high for this valve. * There is moderate mitral annular calcification. * Right ventricular systolic pressure is normal. * The left ventricle is normal in size. * There is mild concentric left ventricular hypertrophy. * Left ventricular systolic function is normal. * Ejection Fraction = 55-60%. * Grade I diastolic dysfunction, (abnormal relaxation pattern). * Septal motion is consistent with post-operative state. s/p Bioprosthetic aortic valve replacement Has as in ECHO CKD-III- creatinine at baseline Will monitor-slightly better HTN-controlled on outpatient therapy, defer changes to Cards team Hypothyroidism-will add TSH :1.49 Cont Synthroid at current home dose. Gerd-cont PPI Anxiety/panic disorder-cont Clonazepam qHS per home regimen DVT proph-heparin drip FULL CODE DISPOSITION Awaited Vital Signs: Date Time Temp Pulse Resp B/P Pulse Ox O2 Delivery O2 Flow Rate FiO2 12/22/16 15:09 36.8 66 16 161/62 93 Room Air 12/22/16 12:00 Room Air 12/22/16 11:44 36.7 59 18 143/60 93 Room Air 12/22/16 09:45 66 12/22/16 08:00 Room Air 12/22/16 07:19 36.7 55 18 152/69 95 Room Air 12/22/16 04:15 36.6 59 18 128/66 93 Room Air 12/22/16 04:00 Room Air 12/22/16 00:23 36.3 55 17 137/56 95 Room Air 12/22/16 00:00 Room Air 12/21/16 20:20 36.8 56 18 148/57 94 Room Air 12/21/16 20:00 Room Air Lab Results: Results Past 24 Hours Test 12/21/16 17:27 12/21/16 22:07 12/21/16 23:35 12/22/16 00:55 Range/Units Total Creatine Kinase 383 519 26-192 U/L Creatine Kinase MB 39.2 60.1 0.5-3.6 ng/ml Creatine Kinase MB Ratio 10.2 11.6 0-3.0 Troponin I 7.010 15.000 0-0.045 ng/ml Activated Partial Thromboplast Time 234.1 241.1 103.9 21.0-31.0 SECONDS Partial Thromboplastin Ratio 8.9 9.2 4.0 Test 12/22/16 01:49 12/22/16 06:27 12/22/16 09:10 12/22/16 11:27 Range/Units Activated Partial Thromboplast Time 62.7 162.7 21.0-31.0 SECONDS Partial Thromboplastin Ratio 2.4 6.2 White Blood Count 8.85 4.8-10.8 K/uL Red Blood Count 3.42 4.2-5.4 M/uL Hemoglobin 11.0 12.0-16.0 g/dL Hematocrit 34.0 37-47 % Mean Corpuscular Volume 99.4 80-100 fL Mean Corpuscular Hemoglobin 32.2 25-34 pg Mean Corpuscular Hemoglobin Concent 32.4 32-36 g/dl RDW Standard Deviation 52.1 36.4-46.3 fL RDW Coefficient of Variation 14.3 11.5-14.5 % Platelet Count 547 130-400 K/uL Mean Platelet Volume 11.2 7.4-10.4 fL Sodium Level 140 136-145 mmol/L Potassium Level 3.8 3.5-5.1 mmol/L Chloride Level 104 98-107 mmol/L Carbon Dioxide Level 30 21-32 mmol/L Anion Gap 6.0 3-11 mmol/L Blood Urea Nitrogen 51 7-18 mg/dl Creatinine 1.70 0.60-1.20 mg/dl Est Creatinine Clear Calc Drug Dose 22.2 ml/min Estimated GFR () 31.1 Estimated GFR (Non- 26.8 BUN/Creatinine Ratio 29.7 10-20 Random Glucose 113 70-99 mg/dl Calcium Level 9.2 8.5-10.1 mg/dl Magnesium Level 2.6 1.8-2.4 mg/dl Triglycerides Level 108 0-150 mg/dl Cholesterol Level 167 0-200 mg/dl HDL Cholesterol 61 mg/dl LDL Cholesterol, Calculated 84 mg/dl VLDL Cholesterol, Calculated 22 mg/dl Cholesterol/HDL Ratio 2.7 Bedside Glucose 117 70-90 mg/dl Test 12/22/16 11:42 Range/Units Activated Partial Thromboplast Time 68.5 21.0-31.0 SECONDS Partial Thromboplastin Ratio 2.6
[2016-12-22 19:56] LABS: PARTIAL THROMBOPLASTIN RATIO 3.5
[2016-12-22] MEDS: CLONAZEPAM 1 MG TAB PO SCH (20:35)
[2016-12-22] MEDS: ATORVASTATIN 40 MG TAB PO SCH (20:36)
[2016-12-23] VITALS (13 sets, daily range): BP systolic 110–159; BP diastolic 55–83; PULSE 56–95; TEMP 36.5–37.1; O2SAT 92–99
[2016-12-23 03:13] LABS: PARTIAL THROMBOPLASTIN RATIO 3.6
[2016-12-23] MEDS: HEPARIN 25,000 UNIT/500ML D5W 500 ML IV PRN ×2 (03:24→04:28)
[2016-12-23 05:59] LABS: BASO % 0.2 %; BASO ABS # 0.02 K/uL (0-0.2); COMPLETE YES; EOS % 3.9 %; HEMATOCRIT 34.7 % (37-47); IG% 0.1 %; LYMPH % 10.3 %; LYMPH ABS # 0.85 K/uL (1.2-3.4); MEAN CELL VOLUME 98.9 fL (80-100); MEAN CORPUSCULAR HEMOGLOBIN 31.9 pg (25-34); MEAN CORPUSCULAR HGB CONC 32.3 g/dl (32-36); MEAN PLATELET VOLUME 10.6 fL (7.4-10.4); MONO % 11.6 %; NEUT % 73.9 %; PLATELET COUNT 507 K/uL (130-400); RED BLOOD COUNT 3.51 M/uL (4.2-5.4); WHITE BLOOD COUNT 8.22 K/uL (4.8-10.8)
[2016-12-23] MEDS ORDERED: CEFAZOLIN SOD 1000MG/55 ML D5W IV SCH (06:00)
[2016-12-23] MEDS: LEVOTHYROXINE 100 MCG TAB PO SCH (06:07)
[2016-12-23 06:27] LABS: PARTIAL THROMBOPLASTIN RATIO 2.4
[2016-12-23] MEDS: PAROXETINE 20 MG TAB PO SCH (07:52)
[2016-12-23] MEDS: PANTOprazole SOD 40 MG TAB PO SCH (07:52)
[2016-12-23] MEDS: POTASSIUM CHLORIDE 10 MEQ TABCR PO SCH (07:53)
[2016-12-23] MEDS: GABAPENTIN 100 MG CAP PO SCH ×2 (07:53→20:37)
[2016-12-23] MEDS: AMLODIPINE BESYLATE 5 MG TAB PO SCH (07:54)
[2016-12-23] MEDS: ASPIRIN 81 MG ECTAB PO SCH (07:55)
[2016-12-23] MEDS: CALCIUM 600MG + VIT D 400 IU TAB PO SCH ×2 (07:55→20:37)
[2016-12-23] MEDS: LOSARTAN POTASSIUM 25 MG TAB PO SCH ×2 (07:55→20:39)
[2016-12-23] MEDS: FUROSEMIDE 40 MG TAB PO SCH (07:55)
--- NOTE | 2016-12-23 08:17 | Clinical Documentation Query ---
[facility] QUERY Documentation includes "diastolic dysfunction". Prior echocardiogram (03/15/15) read to include: "1. Left ventricle is mildly dilated with mild LVH. 2. LVEF has decreased, 25-30% with mid to apical areas of akinesis, including the apex. 3. Severe calcific aortic stenosis. Mean gradient 46mmHg, RADHA 0.6cm2. 4. Diastolic dysfunction." Home regimen includes daily Lasix, amlodipine, losartan, and lopressor. As appropriate, please clarify as this directly impacts DRG assignment. Thank you. In your clinical opinion is this patient being managed for: ( ) Chronic combined systolic and diastolic congestive heart failure ( ) Other explanation of clinical findings (Please Explain) ( ) Unable to determine (Please Define) ( ) Need to Discuss ( + ) Not Agree I cannot find any evidence of :LVEF has decreased, 25-30% with mid to apical areas of akinesis, including the apex The medical record reflects the following clinical findings, treatment, and risk factors. Clinical Indicators: As above, known CAD with known LBBB, "diastolic dysfunction". Treatment: Lasix, amlodipine, losartan, and lopressor, telemetry, cardiology consultation Risk Factors: Age, hypertension, CAD, s/p AVR Please clarify and document your clinical opinion in the progress notes and discharge summary. Terms such as "probable", "suspected", "likely", "questionable", "possible", or "still to be ruled out" are acceptable. IF IN AGREEMENT, YOU MUST DOCUMENT ABOVE DIAGNOSTIC STATEMENT IN DAILY PROGRESS NOTES AND DISCHARGE SUMMARY. This document is not part of the patient's record. Thank You, Frandy Edmond, RN [phone]
--- NOTE | 2016-12-23 10:30 | CARDIOLOGY PROGRESS NOTE ---
DATE: 12/23/2016 SUBJECTIVE: Mrs. Cooper is resting comfortably in bed without complaints of chest pain, dyspnea, syncope, or presyncope. OBJECTIVE: VITAL SIGNS: Blood pressure 150/70 with a regular pulse of 58. Respiratory rate is 18. The patient is afebrile at 36.8 degrees Celsius. Saturation 94% on room air. NECK: Supple with full carotid upstrokes. No obvious bruits. No jugular venous distention. CARDIOVASCULAR: Reveals a regular rhythm with normal S1 and S2. A 2/6 crescendo-decrescendo systolic murmur is heard loudest at the base. LUNGS: Clear without rales, rhonchi, or wheeze. ABDOMEN: Obese without bruits. EXTREMITIES: Reveal intact radial artery pulses bilaterally. There is no peripheral edema. DATA: CBC notes hemoglobin 11.2, hematocrit 34.7, white count 8.2, platelet count 507,000. Electrolytes note a sodium of 140, potassium 3.8, chloride 104, bicarbonate 30, BUN 51, creatinine 1.7, glucose 113. Troponin I level peaked at 15. CK was 519 with an MB fraction of 60.1. EKG notes sinus bradycardia and a complete left bundle-branch block. There is a rightward axis. recreation manager is benign. Echocardiogram notes normal left ventricular systolic function without wall motion abnormality. Estimated left ventricular ejection fraction is 55%-60%. There is mild left ventricular hypertrophy with evidence of diastolic dysfunction. Bioprosthetic aortic valve has normal function, but an elevated gradient. IMPRESSION AND PLAN: 1. Syncope and collapse -- likely secondary to high-degree AV block. Dr. Griggs has reviewed the case and agrees that a permanent pacemaker is indicated at this time. Hopefully, that will be performed later this afternoon. 2. Elevated troponin, I suspect subendocardial ischemia versus myocardial ischemia from coronary disease. Would be reasonable to discontinue heparin metalizer field operation to the lab this afternoon. No need to restart that medication. Will continue with medical management of her coronary disease. 3. Coronary artery disease -- status post coronary artery bypass graft x3 April 2015. This included an GRAHAM to the LAD, SVG to OM, SVG to the distal right coronary artery. 4. Bioprosthetic AVR -- Hernández Magna 19 mm pericardial tissue valve. This performed in April 2015. As above, Doppler gradient across the aortic valve is somewhat elevated. 5. Hypertension -- controlled. 6. Hypercholesterolemia -- continue statin. 7. Chronic left bundle-branch block.
--- NOTE | 2016-12-23 10:40 | CARDIOLOGY CONSULTATION ---
DATE OF CONSULTATION: 12/23/2016 DATE OF CONSULTATION: 12/23/2016. REFERRING PHYSICIAN: Dr. Marilee Bañuelos. CHIEF COMPLAINT: Syncope. HISTORY OF PRESENT ILLNESS: Mrs. Celeste Cooper is an 86-year-old woman with a history of both coronary and valvular heart disease who appears to have been standing in her kitchen when she suffered a syncopal episode. The patient did not report feeling poorly earlier in the day. She did have a very brief prodrome of dizziness and lightheadedness and is feeling as if she would pass. The patient states that she attempted to hold onto the character, but later felt herself on the floor. Her was close by and did confirm the fact that she was unconscious for a very brief period of time. The patient states that upon awakening, she was somewhat oriented, does remember being transported to the hospital, but had difficulty communicating for a brief period of time. She states that she has not suffered similar episodes in the past. She is not reporting episodes of dizziness recently. There were no additional symptoms associated with these episodes such as significant shortness of breath or chest discomfort. The patient had been performing his usual activities with minimal limitation center bypass surgery nearly 2 years ago. She does not report any sensation of palpitations at that time. She generally does not have symptoms of palpitations. She claims to have been eating and thinking well leading up to this event. At the time of the interview, the patient was feeling well. She denied any symptoms of chest discomfort or dizziness. She denies any sense of palpitations. She denies any recent illnesses that involve fevers or chills and has no significant breathing difficulty while at rest or with activity. PAST MEDICAL HISTORY: 1. Significant for the aforementioned coronary artery disease having undergone surgical revascularized in April 2015. 2. Valvular heart disease including severe aortic stenosis, status post bioprosthetic valve replacement in April 2015. 3. Hypertension. 4. Hyperlipidemia. 5. Prediabetes. 6. History of left ventricular systolic dysfunction. Ejection fraction preoperatively measured in 30% range. 7. Hypothyroidism. 8. Bursitis. PAST SURGICAL HISTORY: Includes the aforementioned "bypass surgery and valve replacement" in 2014, carpal tunnel release, appendectomy, tonsillectomy. OUTPATIENT MEDICATIONS: Include aspirin, amlodipine, furosemide, pantoprazole, paroxetine, levothyroxine, clonazepam, gabapentin, metoprolol, atorvastatin, albuterol on p.r.n. basis and candesartan. MEDICAL ALLERGIES: INCLUDE SUE INHIBITORS AND LORAZEPAM. SOCIAL HISTORY: The patient has a remote history of tobacco abuse, currently not smoking. She denies significant alcohol use. Currently lives independently with her locally. FAMILY HISTORY: Noncontributory given the patient's age, no premature coronary disease. REVIEW OF SYSTEMS: A complete 10-system review of systems was performed and the pertinent positives noted in the history of present illness. The patient did report some diffuse diaphoresis with her episode. Generally speaking, she does not have diaphoresis. Once again she has been eating and drink well. Denies any gastrointestinal illnesses recently. She has not had any recent fevers or chills. Remainder of the review of systems was negative. PHYSICAL EXAMINATION: GENERAL: The patient does not appear in acute distress. She is a pleasant individual who is alert and oriented. Mood and affect appeared normal. She answered all questions appropriately. VITAL SIGNS: Include blood pressure 127/61 with pulse of 58. HEAD, EYES, EARS, NOSE, AND THROAT: Her sclerae are anicteric. Pupils are equal and reactive to light and accommodation. Extraocular movements were intact. Palpation of submandibular region did not reveal any significant lymphadenopathy. The carotids are palpable bilaterally. I did not appreciate any bruits on auscultation. There was no evidence of jugular venous distention. Thyroid was not enlarged. LUNGS: Auscultation of both lung stewart reveal them to be clear. There were no rales, wheezes or rhonchi. She had good respiratory effort without use of accessory muscles. CARDIAC EXAMINATION: Revealed her to be in a regular rhythm. She did have a systolic ejection murmur. PMI was not markedly displaced. She had well-healed sternotomy scar. ABDOMEN: Soft and nontender. EXTREMITIES: Evaluation of both wrists revealed radial pulses that were equal in intensity. There is no evidence of cyanosis or clubbing. Evaluation of lower extremities did not reveal any significant peripheral edema. SKIN: I do not appreciate any rashes on examination today. LABORATORY STUDIES: Include a white cell count of 8.2, hemoglobin of 11.2, platelet count of 507. Sodium is 140, potassium is 3.8, BUN was 51, creatinine was 1.7. Cardiac biomarkers were elevated with the most recent being 15. Echocardiogram was performed yesterday which revealed the patient to have preserved left ventricular systolic function and prosthetic valve with a slightly high gradient in the aortic position. The patient's EKG reveals normal sinus rhythm with left bundle branch block. Review of her telemetry reveals occasional periods of ventricular asystole in one setting, this appeared to be Mobitz I conduction. In another setting this appeared to be Mobitz II conduction. ASSESSMENT AND PLAN: 1. Syncope: The etiology of the patient's syncope is unclear. She does have significant conduction disease and it is not uncommon for patients to undergo aortic valve replacement to have residual conduction problems. Given the Mobitz II conduction seen on telemetry in the event in question would seem reasonable to consider permanent pacing in this situation. There is a possibility this resulted from a tachyarrhythmia. The patient does have a known history of ischemic heart disease. She did have elevated cardiac biomarkers subsequent to this event. It is unclear what the cause or relationship happens to be between these marker elevations and her event. In the absence of reduced left ventricular systolic function would seem most appropriate offer therapy with a simple pacemaker. Did discuss risks, benefits and alternatives with the patient and her daughter and are willing to proceed. We will schedule this for later today. 2. Left bundle-branch block. The patient does have a bundle branch block but preserved left ventricular systolic function and no symptoms of congestive heart failure. No indication for biventricular pacing currently.
[2016-12-23 10:59] LABS: PARTIAL THROMBOPLASTIN RATIO 2.6
[2016-12-23] MEDS ORDERED: NURSING VERBAL MED ORDER ONE (11:30)
--- NOTE | 2016-12-23 11:56 | Progress Note ---
Internal Med Progress Note Date of Service: December 23, 2016. Provider Documentation: SUBJECTIVE: The patient was seen and examined Denies any symptoms Has had dizziness during Physical Therapy No SOB and or Chest pain OBJECTIVE: Vital Signs-as noted below Exam: General-no distress at rest Eyes-normal ENT-normal; Neck-supple Lungs-Clear to auscultate bilaterally Heart-Regular,2/6 ESM AA Abdomen-Benign no masses,bowel sound present Extremities-No edema Neuro-AAOx3 Lab data as noted below. ASSESSMENT & PLAN: Syncope Likely secondary to Mobitz Type II AV block No o more episode since admission Appreciate cardiology input Has had an episode of Dizzy spell today during PT Going to have PPM later today NSTEMI with H/O . CAD s/p CABG x 3 vessels in 2014 Serial Troponin and CK/CKMB elevated significantly Has NSTEMI ECHO::There is mild concentric left ventricular hypertrophy. * Left ventricular systolic function is normal. * Grade I diastolic dysfunction, (abnormal relaxation pattern). * The left atrium is moderately dilated. * There is a bioprosthetic aortic valve. * Moderate valvular aortic stenosis. * The transvalvular gradient is high for this valve. * There is moderate mitral annular calcification. * Right ventricular systolic pressure is normal. * The left ventricle is normal in size. * There is mild concentric left ventricular hypertrophy. * Left ventricular systolic function is normal. * Ejection Fraction = 55-60%. * Grade I diastolic dysfunction, (abnormal relaxation pattern). * Septal motion is consistent with post-operative state. No symptoms of CHF s/p Bioprosthetic aortic valve replacement Has as in ECHO Likely not to need any Anticoagulation CKD-III- creatinine at baseline Will monitor-slightly better Will check again tomorrow HTN-controlled on outpatient therapy, defer changes to Cards team Hypothyroidism-will add TSH :1.49 Cont Synthroid at current home dose. Gerd-cont PPI Anxiety/panic disorder-cont Clonazepam qHS per home regimen DVT proph-heparin drip FULL CODE DISPOSITION Awaited Vital Signs: Date Time Temp Pulse Resp B/P Pulse Ox O2 Delivery O2 Flow Rate FiO2 12/23/16 11:46 36.9 61 18 157/70 95 Room Air 12/23/16 10:27 36.7 63 20 128/72 95 Room Air 12/23/16 08:00 94 Room Air 12/23/16 07:20 36.8 58 18 150/73 94 Room Air 12/23/16 04:05 36.5 56 20 159/83 93 Room Air 12/23/16 04:00 Room Air 12/23/16 00:22 36.5 58 19 127/61 92 Room Air 12/23/16 00:00 Room Air 12/22/16 20:24 36.7 61 16 144/64 93 Room Air 12/22/16 20:00 Room Air 12/22/16 16:00 Room Air 12/22/16 15:09 36.8 66 16 161/62 93 Room Air 12/22/16 12:00 Room Air Lab Results: Results Past 24 Hours Test 12/22/16 19:25 12/23/16 02:23 12/23/16 05:51 12/23/16 10:33 Range/Units Activated Partial Thromboplast Time 91.4 94.2 62.3 66.8 21.0-31.0 SECONDS Partial Thromboplastin Ratio 3.5 3.6 2.4 2.6 White Blood Count 8.22 4.8-10.8 K/uL Red Blood Count 3.51 4.2-5.4 M/uL Hemoglobin 11.2 12.0-16.0 g/dL Hematocrit 34.7 37-47 % Mean Corpuscular Volume 98.9 80-100 fL Mean Corpuscular Hemoglobin 31.9 25-34 pg Mean Corpuscular Hemoglobin Concent 32.3 32-36 g/dl Platelet Count 507 130-400 K/uL Mean Platelet Volume 10.6 7.4-10.4 fL Neutrophils (%) (Auto) 73.9 % Lymphocytes (%) (Auto) 10.3 % Monocytes (%) (Auto) 11.6 % Eosinophils (%) (Auto) 3.9 % Basophils (%) (Auto) 0.2 % Neutrophils # (Auto) 6.07 1.4-6.5 K/uL Lymphocytes # (Auto) 0.85 1.2-3.4 K/uL Monocytes # (Auto) 0.95 0.11-0.59 K/uL Eosinophils # (Auto) 0.32 0-0.5 K/uL Basophils # (Auto) 0.02 0-0.2 K/uL RDW Standard Deviation 51.4 36.4-46.3 fL RDW Coefficient of Variation 14.3 11.5-14.5 % Immature Granulocyte % (Auto) 0.1 % Immature Granulocyte # (Auto) 0.01 0.00-0.02 K/uL
[2016-12-23] MEDS ORDERED: CEFAZOLIN IV 1,000 MG in DEXTROSE 5% 50ML 50 ML IV SCH (12:00)
[2016-12-23] MEDS ORDERED: LIDOCAINE HCL 1% 20 ML VIAL ONE (14:33)
[2016-12-23] MEDS ORDERED: FENTANYL CITRATE INJ 50 MCG/1 ML 2 ML VIAL ONE ×2 (14:33→14:46)
[2016-12-23] MEDS ORDERED: BUPIVACAINE 0.5 % 5 MG/1 ML MPF 30ML VIAL ONE (14:33)
[2016-12-23] MEDS ORDERED: MIDAZOLAM HCL 5 MG/ML 1 ML VIAL ONE ×2 (14:33→14:56)
[2016-12-23] MEDS ORDERED: KEFZOL SPECIAL PROCEDURE STOCK 1 GM ADDVIAL IV ONE (14:35)
[2016-12-23] MEDS ORDERED: OXYCODONE/ACETAMINOPHEN 5-325 TAB PO PRN (16:00)
[2016-12-23] MEDS: CLONAZEPAM 1 MG TAB PO SCH (20:37)
[2016-12-23] MEDS: ATORVASTATIN 40 MG TAB PO SCH (20:38)
[2016-12-23] MEDS: CEFAZOLIN IV 1,000 MG in DEXTROSE 5% 50ML 50 ML IV SCH (23:37)
[2016-12-24] VITALS (8 sets, daily range): BP systolic 135–151; BP diastolic 55–77; PULSE 64–72; TEMP 36.8–37.2; O2SAT 92–96
--- NOTE | 2016-12-24 03:29 | OPERATIVE REPORT ---
DATE OF OPERATION: 12/23/2016 PROCEDURE PERFORMED: Implantation of dual-chamber permanent pacemaker. STAFF HOME LENDING OFFICER: Kendal Griggs MD. INDICATIONS: Mrs. Celeste Cooper is an 86-year-old woman with a history of bypass surgery and an aortic valve replacement. She presented with an episode of syncope and was noted on telemetry to have evidence of Mobitz II conduction. Based on these findings, she was evaluated to consider implantation of a permanent pacemaker for symptomatic nonreversible AV node dysfunction. Dual-chamber device was selected and the patient currently in sinus rhythm and he wished to maintain AV synchrony. PROCEDURE IN DETAIL: The patient was informed of the risks, benefits and alternatives to the intended procedure. She understood such and wished to procedure. She was taken to the electrophysiology suite in a fasting state. A preoperative antibiotic had been administered. The patient was monitored electrocardiographically throughout today's procedure and conscious sedation was administered per protocol. The left deltopectoral area was prepped and draped in the usual sterile fashion. This area was anesthetized using subcutaneous administration of Xylocaine and Marcaine solution. An incision was made, dissection was carried down to the prepectoralis fascia using sharp dissection. Electrocautery was also employed for dissection as well as for hemostasis. A device pocket was fashioned in tissues above the pectoral muscle. Subsequent to this, the left axillary vein was accessed using modified Seldinger technique. A sheath was placed over a guidewire at this site and used to facilitate passage of the pacing lead to the respective chambers under fluoroscopic guidance. This included right atrium and right ventricle leads. Adequate sensing and threshold parameters were obtained prior to active fixation of this lead to the endocardial surface. The proximal portion of the lead was then sutured to the prepectoral fascia using a nonabsorbable suture. The device pocket was irrigated with an antibiotic solution. The lead was then attached to the device. Device and leads were then placed in the pocket and the pocket was closed in 3 layers of absorbable suture. Steri-Strips and sterile dressing were applied. The device was tested noninvasively prior to conclusion of the procedure. The patient tolerated the procedure well. There were no immediate complications. EQUIPMENT USED: 1. 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 2. Right atrial lead, logging tractor operator swamp [employer], model #5076, serial #[id number]. 3. Right ventricular lead, logging tractor operator swamp [employer], model #5076, serial #[id number]. MEASURE DATA: 1. Right atrial lead. P-waves measured 1.8 millivolts, pacing threshold was 1.2 millivolts at 0.4 milliseconds with a pacing impedance of 565 ohms. 2. Right ventricular lead: R-waves measured 13 millivolts, pacing threshold was 0.9 volts at 0.4 milliseconds with a pacing impedance of 1021 ohms. IMPRESSION: 1. Successful implantation of dual-chamber permanent pacemaker. PLAN: The patient will be monitored in the self overnight. Additional dose of antibiotics to be administered. A chest x-ray and re-interrogation of device to be performed in the morning. Should all parameters be adequate and the patient be feeling well, she will be considered for discharge at that time. I attest to the content of the Intraoperative Record and any orders documented therein. Any exceptio ns are noted below.
[2016-12-24] MEDS: CEFAZOLIN IV 1,000 MG in DEXTROSE 5% 50ML 50 ML IV SCH ×2 (05:19→14:30)
[2016-12-24] MEDS: LEVOTHYROXINE 100 MCG TAB PO SCH (05:20)
[2016-12-24 05:56] LABS: PARTIAL THROMBOPLASTIN RATIO 1.8
--- NOTE | 2016-12-24 06:57 | DIAGNOSTIC IMAGING REPORT ---
CHEST 2 VIEWS ROUTINE CLINICAL HISTORY: Chest x-ray status post pacemaker placement COMPARISON STUDY: 12/21/2016 FINDINGS: There are postsurgical changes of midline sternotomy and aortic valve replacement. There has been interval placement of a left subclavian dual-chamber central venous pacemaker. No pneumothorax is visualized. Lead position is unremarkable. There is no focal pulmonary consolidation. There are no pleural effusions.[ IMPRESSION: No evidence of pneumothorax status post placement of a left subclavian dual-chamber central venous pacemaker. Electronically signed by: James Mosqueda M.D. 12/24/2016 6:56 AM Dictated Date/Time: 12/24/2016 6:56 AM
[2016-12-24] MEDS: PAROXETINE 20 MG TAB PO SCH (08:40)
[2016-12-24] MEDS: CALCIUM 600MG + VIT D 400 IU TAB PO SCH (08:40)
[2016-12-24] MEDS: ASPIRIN 81 MG ECTAB PO SCH (08:40)
[2016-12-24] MEDS: POTASSIUM CHLORIDE 10 MEQ TABCR PO SCH (08:40)
[2016-12-24] MEDS: PANTOprazole SOD 40 MG TAB PO SCH (08:40)
[2016-12-24] MEDS: GABAPENTIN 100 MG CAP PO SCH (08:41)
[2016-12-24] MEDS: LOSARTAN POTASSIUM 25 MG TAB PO SCH (08:41)
[2016-12-24] MEDS: FUROSEMIDE 40 MG TAB PO SCH (08:41)
[2016-12-24] MEDS: AMLODIPINE BESYLATE 5 MG TAB PO SCH (08:41)
--- NOTE | 2016-12-24 09:57 | CARDIOLOGY PROGRESS NOTE ---
DATE: 12/24/2016 SUBJECTIVE: Mrs. Cooper is resting comfortably in bed without complaints of chest pain or dyspnea. Postoperative pain is adequately controlled. She is anxious for hospital discharge. OBJECTIVE: VITAL SIGNS: Blood pressure 135/55 with a regular pulse of 60. Respiratory rate is 16. The patient is afebrile at 37.2 degree Celsius. Saturation is 92% on room air. NECK: Supple with full carotid upstrokes. No obvious bruits. No jugular venous distention. CARDIOVASCULAR: Reveals a regular rhythm with normal S1 and S2. 2/6 crescendo-decrescendo systolic murmur is heard loudest at the base. LUNGS: Clear without rales, rhonchi, or wheezes. ABDOMEN: Obese without bruits. CHEST: Reveals a palpable device in the left subclavicular region. The incision is dressed. EXTREMITIES: Reveal intact radial artery pulses bilaterally. There is no peripheral edema. LABORATORY DATA: CBC notes hemoglobin of 11.2, hematocrit 34.7, white count 8.2, and platelet count 507,000. Electrolytes note a sodium of 140, potassium 3.8, chloride 104, bicarb 30, BUN 51, creatinine 1.7, and glucose 113. LDL cholesterol is 84 with an HDL of 61. ekg monitor tech notes appropriate pacing. IMPRESSION AND PLAN: 1. Status post DDD pacemaker -- management per Dr. Griggs. 2. Syncope -- likely secondary to Mobitz type 2 AV block and prolonged pauses. Pacemaker implanted as above. 3. Increased troponin -- likely subendocardial ischemia at the time of her presentation. Would recommend restarting beta darion. 4. Coronary artery disease -- status post coronary artery bypass graft x3 in April 2015. Anatomy noted yesterday. 5. Bioprosthetic AVR - April 2015. Doppler gradients at the time of her echocardiogram were somewhat elevated. However, this is a 19-mm, small pericardial tissue valve. 6. Hypertension -- controlled. 7. Hypercholesterolemia -- continue statin. 8. Chronic left bundle branch block.
--- NOTE | 2016-12-24 11:12 | Progress Note ---
Internal Med Progress Note Date of Service: December 24, 2016. Provider Documentation: SUBJECTIVE: The patient was seen and examined Denies any symptoms Has had dizziness during Physical Therapy S/P DDD PM 0n 12/23/16 Denies any symptoms OBJECTIVE: Vital Signs-as noted below Exam: General-no distress at rest Eyes-normal ENT-normal; Neck-supple Lungs-Clear to auscultate bilaterally Heart-Regular,2/6 ESM AA Abdomen-Benign no masses,bowel sound present Extremities-No edema Neuro-AAOx3 Lab data as noted below. ASSESSMENT & PLAN: Syncope Likely secondary to Mobitz Type II AV block No o more episode since admission Appreciate cardiology input Has had an episode of Dizzy spell today during PT S/P DDD PM placed on 12/23/16 Denies any symptoms Ambulating well NSTEMI with H/O . CAD s/p CABG x 3 vessels in 2014 Serial Troponin and CK/CKMB elevated significantly Has NSTEMI ECHO::There is mild concentric left ventricular hypertrophy. * Left ventricular systolic function is normal. * Grade I diastolic dysfunction, (abnormal relaxation pattern). * The left atrium is moderately dilated. * There is a bioprosthetic aortic valve. * Moderate valvular aortic stenosis. * The transvalvular gradient is high for this valve. * There is moderate mitral annular calcification. * Right ventricular systolic pressure is normal. * The left ventricle is normal in size. * There is mild concentric left ventricular hypertrophy. * Left ventricular systolic function is normal. * Ejection Fraction = 55-60%. * Grade I diastolic dysfunction, (abnormal relaxation pattern). * Septal motion is consistent with post-operative state. No symptoms of CHF Will restart BB s/p Bioprosthetic aortic valve replacement Has as in ECHO Likely not to need any Anticoagulation CKD-III- creatinine at baseline Will monitor-slightly better Will check again tomorrow-pending HTN-controlled on outpatient therapy, defer changes to Cards team Remains stable Hypothyroidism-will add TSH :1.49 Cont Synthroid at current home dose. Gerd-cont PPI Anxiety/panic disorder-cont Clonazepam qHS per home regimen DVT proph-heparin drip FULL CODE DISPOSITION Discharge home today Vital Signs: Date Time Temp Pulse Resp B/P Pulse Ox O2 Delivery O2 Flow Rate FiO2 12/24/16 09:56 68 95 12/24/16 07:35 37.2 68 16 135/55 92 Room Air 12/24/16 04:00 Room Air 12/24/16 03:58 37.0 64 17 148/59 93 Room Air 12/24/16 00:43 37.1 69 17 136/65 92 Room Air 12/23/16 23:59 Room Air 12/23/16 20:44 88 110/65 12/23/16 20:00 99 Room Air 3.0 12/23/16 19:34 36.8 95 18 153/70 99 12/23/16 16:45 63 20 128/55 94 Room Air 12/23/16 16:00 98 Room Air 12/23/16 16:00 98 Room Air 12/23/16 16:00 36.5 70 11 136/62 98 Room Air 12/23/16 15:46 66 16 118/66 99 Nasal Cannula 3 12/23/16 15:35 67 16 112/58 99 Nasal Cannula 3 12/23/16 12:00 94 Room Air 12/23/16 11:46 36.9 61 18 157/70 95 Room Air Lab Results: Results Past 24 Hours Test 12/24/16 05:18 Range/Units Activated Partial Thromboplast Time 47.4 21.0-31.0 SECONDS Partial Thromboplastin Ratio 1.8
[2016-12-24 12:07] LABS: BUN/CREATININE RATIO 25.6 (10-20); CALCIUM 9.3 mg/dl (8.5-10.1); CREATININE 1.7 mg/dl (0.60-1.20); MAGNESIUM 2.4 mg/dl (1.8-2.4); POTASSIUM 4.3 mmol/L (3.5-5.1)
--- NOTE | 2016-12-24 12:07 | CARDIOLOGY PROGRESS NOTE ---
DATE: 12/24/2016 DATE: 12/24/2016. SUBJECTIVE: Mrs. Cooper has some mild discomfort at the implant site. Evaluation of the wound reveals minimal ecchymosis and only some mild swelling without evidence of significant hematoma. I reviewed her chest x-ray which reveals stable placement of the atrial ventricular leads without evidence of pneumothorax. Device interrogation was also performed this morning which reveals normal device function. IMPRESSION: 1. Successful implantation of dual chamber permanent pacemaker without complications. 2. Certainly fine for discharge from a pacemaker standpoint, the patient should refrain from lifting the left arm above the shoulder for 6 weeks' time and keep the wound dry for 1 week with the steri-strips intact. The patient should follow up in pacemaker clinic in a period of 1 week for wound evaluation.
[2016-12-24] MEDS ORDERED: LPT40 PO (14:04)
--- NOTE | 2016-12-24 14:06 | Discharge Instructions ---
Discharge Instructions Date of Service December 24, 2016. Admission Reason for Admission: Syncope And Collapse Discharge Discharge Diagnosis / Problem: Heart Block s/p PPM,NSTEMI Discharge Goals Goal(s): Prevent Disease Progression Activity Recommendations Activity Limitations: resume your previous activity . Instructions / Follow-Up Instructions / Follow-Up Dr Hampton on 12/29/16 at 10:25 AM.Please keep appointment with the Interactive Designer Current Hospital Diet Patient's current hospital diet: AHA Diet (Heart Healthy) Discharge Diet Recommended Diet: AHA Diet (Heart Healthy) Pending Studies Studies pending at discharge: no Laboratory Results Lipid Panel Test 12/22/16 06:27 Range/Units Triglycerides Level 108 0-150 mg/dl Cholesterol Level 167 0-200 mg/dl HDL Cholesterol 61 mg/dl Cholesterol/HDL Ratio 2.7 LDL Cholesterol, Calculated 84 mg/dl Medical Emergencies . Who to Call and When: Medical Emergencies: If at any time you feel your situation is an emergency, please call 911 immediately. . Non-Emergent Contact Non-Emergency issues call your: Primary Care Provider . 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 "Provider Documentation" section prepared by Marilee Bañuelos. . VTE Core Measure Inpt VTE Proph given/why not?: Other Anticoagulation (Heparin IV)
--- NOTE | 2016-12-25 09:16 | Discharge Summary ---
Discharge Summary Date of Service December 25, 2016. Discharge Summary Admission Date: December 21, 2016 at 13:23 Discharge Date: December 24, 2016 Discharge Disposition: Home Principal Diagnosis: Heart Block s/p PPM,NSTEMI Secondary Diagnoses/Problems: Please see H&P and Hospital Progress note Consultations: Cardiology Medication Reconciliation New Medications: Atorvastatin (Atorvastatin Calcium) 40 Mg Tab 80 MG PO HS for 30 Days, #60 TAB Continued Medications: Albuterol Sulfate (Proair Respiclick) 108 Mcg/Act Aer 2 PUFF INH QID PRN for shortness of breath Amlodipine Besylate (Amlodipine Besylate) 5 Mg Tab 2.5 MG PO DAILY Aspirin (Aspirin Ec) 81 Mg Tab 81 MG PO DAILY Calcium Carbonate-Vitamin D (Calcium 600 + D) 1 Tab Tab 1 TAB PO QAM Clonazepam (Klonopin) 2 Mg Tab 2 MG PO HS Diclofenac Sodium (Topical) (Voltaren 1% Top Gel) 1 % Gel Furosemide (Lasix) 20 Mg Tab 40 MG PO QAM, TAB Gabapentin (Neurontin) 100 Mg Cap 100 MG PO BID Levothyroxine Sodium (Synthroid) 100 Mcg Tab 100 MCG PO QAM, TAB Losartan Potassium (Cozaar) 25 Mg Tab 25 MG PO BID, TAB Metoprolol Tartrate (Lopressor) 25 Mg Tab 12.5 MG PO BID, #30 Pantoprazole (Protonix) 40 Mg Tab 40 MG PO QAM, #30 TAB Paroxetine (Paxil) 40 Mg Tab 40 MG PO QAM Potassium Chloride (Micro-K Ext Rel) 10 Meq Capcr 10 MEQ PO QAM, CAP Tramadol HCl (Tramadol HCl) 50 Mg Tab 50 MG PO Q6 PRN for Pain Discontinued Medications: Atorvastatin (Lipitor) 20 Mg Tab 20 MG PO QAM, TAB Admission Information HPI (per Admitting provider): 86 yo female with known CAD s/p CABG in 2015 and h/o AV replacement in 2015 for severe presents today after a syncopal episode while standing in her kitchen opening a can. She reports feeling some chest pain for the past 1-2 weeks in her substernal area that she describes as "like a pencil pushing into my chest. " She states this pain started occurring daily and she cannot identify any provoking factors. She states that in getting the pain, she would sit down, rest and take some deep breaths and the pain would subside. She felt some of this chest pain again today after the event. Her son was present and witnessed the fall. He is not here to give the story, but it is being facilitated by her daughter who is also an RN who works here. There was some urinary incontinence and she did lose consciousness but did not hit her head. There appeared to be some confusion and slurred speech initially which cleared. The patient doesn't remember the fall and states that she felt well and was doing laundry this morning without any issues prior to the fall. She reports feeling fine at this time with no chest pain (resolved only after given aspirin upon arrival to the ER) and no neuro deficits, confusion, difficulty speaking or difficulty ambulating at this time. She otherwise denies any other symptoms of recent illnesses or colds, no UTI symptoms, denies nausea, vomiting, diarrhea, abdominal pain. She denies SOB, lightheadedness or diaphoresis with any of the previous chest pain in the past two weeks. She did have some sweating with the syncopal episode this morning. Past Medical/Surgical History Medical Problems: (1) Aortic valve stenosis Permanent Comment: Severe per echo 11/01/2013 Status: Chronic (2) Carotid stenosis Permanent Comment: Per carotid duplex 10/12/2013- 50-69% stenosis of MEHDI, <50% stenosis of LICA Status: Chronic (3) CKD (chronic kidney disease), stage IV Status: Chronic (4) Diastolic dysfunction Permanent Comment: Per echo 11/01/2013- Grade I diastolic dysfunction Status: Chronic (5) DM type 2 (diabetes mellitus, type 2) Status: Chronic (6) Dyslipidemia Status: Chronic (7) Generalized anxiety disorder Status: Chronic (8) Hypertension Status: Chronic (9) Hypothyroidism Status: Chronic (10) Osteoarthritis Status: Chronic (11) Panic disorder Status: Chronic Surgical Problems: (1) H/O heart bypass surgery Permanent Comment: Apr 2015 Status: Chronic (2) Heart valve replaced Permanent Comment: AV replacement in Apr 2015 Status: Chronic (3) History of carpal tunnel surgery Status: Chronic (4) S/P appendectomy Status: Chronic (5) S/P tonsillectomy Status: Chronic Family History Omitted secondary to age Social History Smoking Status: Former Smoker Smokeless Tobacco Use: No Alcohol Use: none Drug Use: none Marital Status: Housing status: lives with family (lives with daughter and ) Occupational Status: retired Immunizations History of Influenza Vaccine: Yes Influenza Vaccine Date: Jun 05, 2016 History of Tetanus Vaccine?: Yes Tetanus Immunization Date: Aug 09, 2006 History of Pneumococcal: Yes Pneumococcal Date: May 24, 2015 History of Hepatitis B Vaccine: No Multi-Drug Resistant Organisms History of MDRO: No Allergies Coded Allergies: Lorazepam (Verified Adverse Reaction, Intermediate, SEVERE CONFUSION/ SEVERE RAGE, 01/28/16) SUE Inhibitors (Verified Adverse Reaction, Unknown, cough, 01/28/16) Home Medications Scheduled Amlodipine Besylate (Amlodipine Besylate), 2.5 MG PO DAILY Aspirin (Aspirin Ec), 81 MG PO DAILY Atorvastatin (Lipitor), 20 MG PO QAM Calcium Carbonate-Vitamin D (Calcium 600 + D), 1 TAB PO QAM Clonazepam (Klonopin), 2 MG PO HS Furosemide (Lasix), 40 MG PO QAM Gabapentin (Neurontin), 100 MG PO BID Levothyroxine Sodium (Synthroid), 100 MCG PO QAM Losartan Potassium (Cozaar), 25 MG PO BID Metoprolol Tartrate (Lopressor), 12.5 MG PO BID Pantoprazole (Protonix), 40 MG PO QAM Paroxetine (Paxil), 40 MG PO QAM Potassium Chloride (Micro-K Ext Rel), 10 MEQ PO QAM Scheduled PRN Albuterol Sulfate (Proair Respiclick), 2 PUFF INH QID PRN for shortness of breath Tramadol HCl (Tramadol HCl), 50 MG PO Q6 PRN for Pain Miscellaneous Medications Diclofenac Sodium (Topical) (Voltaren 1% Top Gel) Review of Systems ten systems reviewed and negative except as stated in HPI Physical Exam Vital Signs Date Time Temp Pulse Resp B/P Pulse Ox O2 Delivery O2 Flow Rate FiO2 12/21/16 13:59 36.6 69 18 148/65 94 Room Air 12/21/16 13:44 82 18 148/65 94 Room Air 12/21/16 13:34 81 12/21/16 12:51 84 20 147/76 97 Room Air 12/21/16 11:33 86 12/21/16 11:30 36.6 89 18 95 Room Air 12/21/16 11:30 95 Room Air 12/21/16 11:30 36.6 89 18 164/79 95 Room Air 157/78 162/75 GEN: WNWD, in no acute distress, alert and appropriate HEENT: NC/AT, PERRL, normal sclerae/conjunctivae, pharynx non acute, MMM, no JVD CARDIO: reg rate, 3/6 MICHOACANO across precordium, very TTP on R anterior chest, and slightly tender on L anterior chest LUNGS: CTA bilaterally, no crackles, rales or wheezes, good diaphragmatic excursion ABD: soft, non-tender, non-distended, +BS EXTREMITY: RP and DP palpable 2+ bilat, no LE swelling or edema, extremities are warm and well-perfused NEURO: CN 2-12 grossly intact, sensation intact throughout, coordination intact (pt is ambulatory by report-not assessed by me) (reflexes) BR 2/4 bilat, knee 2/4 bilat MUSC: 5/5 strength throughout, no focal deficits SKIN: warm and dry Diagnostics Laboratory Results Results Past 24 Hours Test 12/21/16 11:28 12/21/16 11:35 12/21/16 11:42 Range/Units Urine Color YELLOW Urine Appearance CLEAR CLEAR Urine pH 7.0 4.5-7.5 Urine Specific [place] 1.008 1.000-1.030 Urine Protein NEG NEG Urine Glucose (UA) NEG NEG Urine Ketones NEG NEG Urine Occult Blood NEG NEG Urine Nitrite NEG NEG Urine Bilirubin NEG NEG Urine Urobilinogen NEG NEG Urine Leukocyte Esterase NEG NEG White Blood Count 10.87 4.8-10.8 K/uL Red Blood Count 3.95 4.2-5.4 M/uL Hemoglobin 12.7 12.0-16.0 g/dL Hematocrit 39.3 37-47 % Mean Corpuscular Volume 99.5 80-100 fL Mean Corpuscular Hemoglobin 32.2 25-34 pg Mean Corpuscular Hemoglobin Concent 32.3 32-36 g/dl Platelet Count 649 130-400 K/uL Mean Platelet Volume 11.5 7.4-10.4 fL Neutrophils (%) (Auto) 72.3 % Lymphocytes (%) (Auto) 14.2 % Monocytes (%) (Auto) 7.5 % Eosinophils (%) (Auto) 5.5 % Basophils (%) (Auto) 0.2 % Neutrophils # (Auto) 7.86 1.4-6.5 K/uL Lymphocytes # (Auto) 1.54 1.2-3.4 K/uL Monocytes # (Auto) 0.82 0.11-0.59 K/uL Eosinophils # (Auto) 0.60 0-0.5 K/uL Basophils # (Auto) 0.02 0-0.2 K/uL RDW Standard Deviation 51.3 36.4-46.3 fL RDW Coefficient of Variation 14.1 11.5-14.5 % Immature Granulocyte % (Auto) 0.3 % Immature Granulocyte # (Auto) 0.03 0.00-0.02 K/uL Prothrombin Time 12.1 9.0-12.0 SECONDS Prothromb Time International Ratio 1.1 0.9-1.1 Activated Partial Thromboplast Time 48.5 21.0-31.0 SECONDS Partial Thromboplastin Ratio 1.9 Sodium Level 139 136-145 mmol/L Potassium Level 3.9 3.5-5.1 mmol/L Chloride Level 102 98-107 mmol/L Carbon Dioxide Level 27 21-32 mmol/L Anion Gap 10.0 3-11 mmol/L Blood Urea Nitrogen 54 7-18 mg/dl Creatinine 1.80 0.60-1.20 mg/dl Est Creatinine Clear Calc Drug Dose 21.3 ml/min Estimated GFR () 29.0 Estimated GFR (Non- 25.0 BUN/Creatinine Ratio 30.1 10-20 Random Glucose 122 70-99 mg/dl Calcium Level 9.5 8.5-10.1 mg/dl Total Creatine Kinase 211 26-192 U/L Creatine Kinase MB 6.8 0.5-3.6 ng/ml Creatine Kinase MB Ratio 3.2 0-3.0 Troponin I 0.971 0-0.045 ng/ml Bedside Glucose 111 70-90 mg/dl Microbiology Results 12/21/16 Urine Culture, Received Pending Diagnostic Radiology CT HEAD WITHOUT CONTRAST (CT) CLINICAL HISTORY: Stroke SYNCOPE COMPARISON STUDY: 05/02/2015 TECHNIQUE: Axial CT of the brain is performed from the vertex to the skull base. IV contrast was not administered for this examination. CT DOSE: 537.48 mGy.cm FINDINGS: No intra or extra-axial mass lesions are visualized. There is no CT evidence of acute cortical infarction. There is no evidence of midline shift. There is no acute hemorrhage. No calvarial fractures are visualized. There are patchy white matter hypodensities likely on a small vessel basis. There is no evidence of pathologic ventricular dilatation. There is no evidence of acute sinusitis. There is stable prominence of the frontal extra-axial space, likely secondary to volume loss. IMPRESSION: No acute intracranial findings CXR pending EKG SR, 1AVB, oc PVCs, non-specific conduction block with known h/o LBBB per outpatient cardiology notes. Impression Assessment and Plan 86 yo F with h/o aortic valve replacement and CABG in 2014 presents with syncope this morning 1. Syncope-uncertain cause but etiologies include but not limited to ACS, cardiac arrhythmia, valve abnormality, vasovagal or orthostatic hypotension ( uncertain trigger). The patient is confirmed by daughter who is a nurse that she is not a diabetic, so not on insulin but she was preparing breakfast so might have been hypoglycemic. Ongoing chest pain for past two weeks is concerning for unstable angina and pain is reproducible to palpation. With known history will start empiric heparin drip (TRS is 6), increase Lipitor to 80mg now for plaque stabilization, cont with ASA, cont BB and consult cardiology. Will cont to monitor on telemetry and defer repeat echo evaluation to Cardiology. Of note, there was some possible slurred speech noted today after syncopal episode, however, there was nothing noted that was a focal finding and she is completely neurologically intact at this time, and ambulatory with a negative head CT, so stroke not thought probable at this time. 2. CAD-plan as above. 3. s/p aortic valve replacement 4. CKD-III- creatinine at baseline 5. HTN-controlled on outpatient therapy, defer changes to Cards team 6. Hypothyroidism-will add TSH to bloodwork. Cont Synthroid at current home dose. 7. Gerd-cont PPI 8. Anxiety/panic disorder-cont Clonazepam qHS per home regimen DVT proph-heparin drip FULL CODE Dispo-on surveillance monitor Adore Mart DO [facility] Hospitalist Level of Care Telemetry Advanced Directives Existing Living Will: Yes Existing Power of Dough Molder: Yes Resuscitation Status FULL RESUSCITATION VTE Prophylaxis VTE Risk Assessment Done? Y/N: Yes Risk Level: Moderate Given or contraindicated: Other Anticoagulation (heparin drip) <Electronically signed by Adore Mart DO> Physical Exam (per Admitting): GEN: WNWD, in no acute distress, alert and appropriate HEENT: NC/AT, PERRL, normal sclerae/conjunctivae, pharynx non acute, MMM, no JVD CARDIO: reg rate, 3/6 MICHOACANO across precordium, very TTP on R anterior chest, and slightly tender on L anterior chest LUNGS: CTA bilaterally, no crackles, rales or wheezes, good diaphragmatic excursion ABD: soft, non-tender, non-distended, +BS EXTREMITY: RP and DP palpable 2+ bilat, no LE swelling or edema, extremities are warm and well-perfused NEURO: CN 2-12 grossly intact, sensation intact throughout, coordination intact (pt is ambulatory by report-not assessed by me) (reflexes) BR 2/4 bilat, knee 2/4 bilat MUSC: 5/5 strength throughout, no focal deficits SKIN: warm and dry Hospital Course Syncope Likely secondary to Mobitz Type II AV block No o more episode since admission Appreciate cardiology input Has had an episode of Dizzy spell today during PT S/P DDD PM placed on 12/23/16 Denies any symptoms Ambulating well NSTEMI with H/O . CAD s/p CABG x 3 vessels in 2014 Serial Troponin and CK/CKMB elevated significantly Has NSTEMI ECHO::There is mild concentric left ventricular hypertrophy. * Left ventricular systolic function is normal. * Grade I diastolic dysfunction, (abnormal relaxation pattern). * The left atrium is moderately dilated. * There is a bioprosthetic aortic valve. * Moderate valvular aortic stenosis. * The transvalvular gradient is high for this valve. * There is moderate mitral annular calcification. * Right ventricular systolic pressure is normal. * The left ventricle is normal in size. * There is mild concentric left ventricular hypertrophy. * Left ventricular systolic function is normal. * Ejection Fraction = 55-60%. * Grade I diastolic dysfunction, (abnormal relaxation pattern). * Septal motion is consistent with post-operative state. No symptoms of CHF Will restart BB s/p Bioprosthetic aortic valve replacement Has as in ECHO Likely not to need any Anticoagulation CKD-III- creatinine at baseline Will monitor-slightly better Will check again tomorrow-pending HTN-controlled on outpatient therapy, defer changes to Cards team Remains stable Hypothyroidism-will add TSH :1.49 Cont Synthroid at current home dose. Gerd-cont PPI Anxiety/panic disorder-cont Clonazepam qHS per home regimen DVT proph-heparin drip FULL CODE DISPOSITION Discharge home today Total time spent on discharge = 35 minutes This includes examination of the patient, discharge planning, medication reconciliation, and communication with other providers. Discharge Instructions Date of Service December 24, 2016. Admission Reason for Admission: Syncope And Collapse Discharge Discharge Diagnosis / Problem: Heart Block s/p PPM,NSTEMI Discharge Goals Goal(s): Prevent Disease Progression Activity Recommendations Activity Limitations: resume your previous activity . Instructions / Follow-Up Instructions / Follow-Up Dr Hampton on 12/29/16 at 10:25 AM.Please keep appointment with the [employer] [facility] Current Hospital Diet Patient's current hospital diet: AHA Diet (Heart Healthy) Discharge Diet Recommended Diet: AHA Diet (Heart Healthy) Pending Studies Studies pending at discharge: no Laboratory Results Lipid Panel Test 12/22/16 06:27 Range/Units Triglycerides Level 108 0-150 mg/dl Cholesterol Level 167 0-200 mg/dl HDL Cholesterol 61 mg/dl Cholesterol/HDL Ratio 2.7 LDL Cholesterol, Calculated 84 mg/dl Medical Emergencies . Who to Call and When: Medical Emergencies: If at any time you feel your situation is an emergency, please call 911 immediately. . Non-Emergent Contact Non-Emergency issues call your: Primary Care Provider . 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 "Provider Documentation" section prepared by Marilee Bañuelos. . VTE Core Measure Inpt VTE Proph given/why not?: Other Anticoagulation (Heparin IV) <Electronically signed by Marilee Bañuelos M.D.> Additional Copies To Rosa Hampton M.D.
[2017-02-05] MEDS ORDERED: ATOR-24 PO (14:00)
== END 2016-12-24 15:16 | disposition home health service (06) | DRG 242 ==
LOC: ENRESERVDT → ENRESERVTM → EDBD 11:15 → C.EDC 11:16 → C.MED 13:23 → C.2E 12-23 16:10
PROVIDERS: ADMIT Hospitalist; ATTEND Internal Medicine
PROC: 02HK3JZ Insertion of Pacemaker Lead into Right Ventricle, Percutaneous Approach (ICD-10-PCS; principal; 2016-12-23 14:28)
PROC: 0JH606Z Insertion of Pacemaker, Dual Chamber into Chest Subcutaneous Tissue and Fascia, Open Approach (ICD-10-PCS; principal; 2016-12-23 14:28)
PROC: 02H63JZ Insertion of Pacemaker Lead into Right Atrium, Percutaneous Approach (ICD-10-PCS; principal; 2016-12-23 14:28)
DX: I44.1 Atrioventricular block, second degree (principal); I21.4 Non-ST elevation (NSTEMI) myocardial infarction; I13.10 Hypertensive heart and chronic kidney disease without heart failure, with stage 1 through stage 4 chronic kidney disease, or unspecified chronic kidney disease; N18.3 Chronic kidney disease, stage 3 (moderate); I35.0 Nonrheumatic aortic (valve) stenosis; E03.9 Hypothyroidism, unspecified; K21.9 Gastro-esophageal reflux disease without esophagitis; F41.0 Panic disorder [episodic paroxysmal anxiety]; I44.7 Left bundle-branch block, unspecified; F41.1 Generalized anxiety disorder; R73.03 Prediabetes; I25.10 Atherosclerotic heart disease of native coronary artery without angina pectoris; I65.29 Occlusion and stenosis of unspecified carotid artery; E78.5 Hyperlipidemia, unspecified; E78.00 Pure hypercholesterolemia, unspecified; Z51.81 Encounter for therapeutic drug level monitoring; Z79.899 Other long term (current) drug therapy; Z79.82 Long term (current) use of aspirin; Z95.4 Presence of other heart-valve replacement; Z95.1 Presence of aortocoronary bypass graft; Z87.891 Personal history of nicotine dependence

== ENCOUNTER 2017-02-22 09:55 | Inpatient (IN) | payer OTHER ==
[2017-02-05 14:00] VITALS: Ht 160 cm; Wt 71.3 kg
--- NOTE | 2017-02-05 14:46 | PAT Medication Instructions ---
Service Date Feb 05, 2017. Current Home Medication List Amlodipine Besylate (Amlodipine Besylate), 2.5 MG PO QAM Aspirin (Aspirin Ec), 81 MG PO QAM Atorvastatin (Lipitor), 40 MG PO HS Calcium Carbonate-Vitamin D (Calcium 600 + D), 1 TAB PO QAM Clonazepam (Klonopin), 2 MG PO HS Diclofenac Sodium (Topical) (Voltaren 1% Top Gel) Furosemide (Lasix), 40 MG PO QAM Gabapentin (Neurontin), 100 MG PO BID Levothyroxine Sodium (Synthroid), 100 MCG PO QAM Losartan Potassium (Cozaar), 12.5 MG PO BID Metoprolol Tartrate (Lopressor), 25 MG PO QAM Pantoprazole (Protonix), 40 MG PO QAM Paroxetine (Paxil), 40 MG PO QAM Potassium Chloride (Micro-K Ext Rel), 10 MEQ PO QAM Tramadol HCl (Tramadol HCl), 50 MG PO Q6 PRN for Pain Medication Instructions For Your Scheduled Surgery - Hold the following medications 24 hours prior to surgery: Losartan Potassium (Cozaar), 12.5 MG PO BID Diclofenac Sodium (Topical) (Voltaren 1% Top Gel) - Hold the following medications the morning of surgery: Furosemide (Lasix), 40 MG PO QAM Calcium Carbonate-Vitamin D (Calcium 600 + D), 1 TAB PO QAM Potassium Chloride (Micro-K Ext Rel), 10 MEQ PO QAM - Take the following medications the morning of surgery with a sip of water OTHERWISE NOTHING TO EAT OR DRINK AFTER MIDNIGHT: Metoprolol Tartrate (Lopressor), 25 MG PO QAM Amlodipine Besylate (Amlodipine Besylate), 2.5 MG PO QAM Aspirin (Aspirin Ec), 81 MG PO QAM Levothyroxine Sodium (Synthroid), 100 MCG PO QAM Pantoprazole (Protonix), 40 MG PO QAM Paroxetine (Paxil), 40 MG PO QAM Gabapentin (Neurontin), 100 MG PO BID Tramadol HCl (Tramadol HCl), 50 MG PO Q6 PRN for Pain (may take if needed up to 4 hours prior to surgery) - Take the following medications as scheduled the night before surgery: Gabapentin (Neurontin), 100 MG PO BID Clonazepam (Klonopin), 2 MG PO HS Atorvastatin (Lipitor), 40 MG PO HS Tramadol HCl (Tramadol HCl), 50 MG PO Q6 PRN for Pain If you have any questions please call us at [phone] or [phone] or [phone]
[2017-02-05 15:45] LABS: URINE APPEARANCE CLEAR (CLEAR); URINE BILIRUBIN NEG (NEG); URINE COLOR YELLOW; URINE NITRITE NEG (NEG); URINE SPECIFIC GRAVITY 1.012 (1.000-1.030); UROBILINOGEN NEG (NEG)
[2017-02-05 15:45] LABS: BASO % 0.1 %; BASO ABS # 0.01 K/uL (0-0.2); COMPLETE YES; EOS % 0.8 %; HEMATOCRIT 35.2 % (37-47); IG% 0.2 %; LYMPH % 9.3 %; LYMPH ABS # 0.87 K/uL (1.2-3.4); MEAN CELL VOLUME 99.7 fL (80-100); MEAN CORPUSCULAR HEMOGLOBIN 31.2 pg (25-34); MEAN CORPUSCULAR HGB CONC 31.3 g/dl (32-36); MEAN PLATELET VOLUME 11.8 fL (7.4-10.4); MONO % 0.9 %; NEUT % 88.7 %; PLATELET COUNT 544 K/uL (130-400); RED BLOOD COUNT 3.53 M/uL (4.2-5.4); WHITE BLOOD COUNT 9.33 K/uL (4.8-10.8)
[2017-02-05 15:51] LABS: MANUAL MICROSCOPIC REQUIRED? NO; REVIEW REQ? NO
[2017-02-05 15:58] LABS: BUN/CREATININE RATIO 21.5 (10-20); CALCIUM 9.5 mg/dl (8.5-10.1); CREATININE 1.7 mg/dl (0.60-1.20); POTASSIUM 4.1 mmol/L (3.5-5.1)
[2017-02-05 16:07] LABS: INR 1.1 (0.9-1.1); PARTIAL THROMBOPLASTIN RATIO 1.9
[2017-02-06 05:41] LABS: ESTIMATED AVERAGE GLUCOSE 137 mg/dl; HA1C FLAG Normal (Normal)
--- NOTE | 2017-02-19 10:38 | History and Physical ---
History & Physical Date Feb 19, 2017. Chief Complaint Right knee pain History of Present Illness The patient is a 86 year old female with complaints of chronic right knee pain with known DJD. She has had previous corticosteroid and visco injections. She continues to have ongoing pain and disability. She had previous left TKA ~ 1 year ago. Past Medical/Surgical History Medical Problems: (1) Aortic valve stenosis (2) Carotid stenosis (3) CKD (chronic kidney disease), stage IV (4) Diastolic dysfunction (5) DM type 2 (diabetes mellitus, type 2) (6) Dyslipidemia (7) Generalized anxiety disorder (8) Hypertension (9) Hypothyroidism (10) Osteoarthritis (11) Panic disorder (12) Syncope and collapse Surgical Problems: (1) H/O heart bypass surgery (2) Heart valve replaced (3) History of carpal tunnel surgery (4) Post-operative state (5) S/P appendectomy (6) S/P tonsillectomy Additional History Hepatic Disease: No Endocrine Disorder: No Kidney Disease: No Hypertension: Yes (H/O PR, cardiac valve replacement and CABG) Heart Disease: No Bleeding Tendencies: Yes (H/O Lupus) Infectious Diseases: No Other: Depression, Lupus Allergies Coded Allergies: Lorazepam (Verified Adverse Reaction, Intermediate, SEVERE CONFUSION/ SEVERE RAGE, 02/05/17) SUE Inhibitors (Verified Adverse Reaction, Unknown, cough, 02/05/17) Home Medications Scheduled Amlodipine Besylate (Amlodipine Besylate), 2.5 MG PO QAM Aspirin (Aspirin Ec), 81 MG PO QAM Atorvastatin (Lipitor), 40 MG PO HS Calcium Carbonate-Vitamin D (Calcium 600 + D), 1 TAB PO QAM Clonazepam (Klonopin), 2 MG PO HS Furosemide (Lasix), 40 MG PO QAM Gabapentin (Neurontin), 100 MG PO BID Levothyroxine Sodium (Synthroid), 100 MCG PO QAM Losartan Potassium (Cozaar), 12.5 MG PO BID Metoprolol Tartrate (Lopressor), 25 MG PO QAM Pantoprazole (Protonix), 40 MG PO QAM Paroxetine (Paxil), 40 MG PO QAM Potassium Chloride (Micro-K Ext Rel), 10 MEQ PO QAM Scheduled PRN Tramadol HCl (Tramadol HCl), 50 MG PO Q6 PRN for Pain Miscellaneous Medications Diclofenac Sodium (Topical) (Voltaren 1% Top Gel) Physical Examination Skin: warm/dry Eyes: normal inspection, EOMI ENT: normal ENT inspection Head: normocephalic Neck: supple, no adenopathy Respiratory/Chest: lungs clear, normal breath sounds Cardiovascular: regular rate, rhythm Abdomen / GI: normal bowel sounds Extremities: + pertinent finding (Right knee varus aligned, ROM ~ 0-120 degrees ) Addiitonal Comments: Xrays: Varus aligned knee with bone on bone arthritis medial compartment, medial osteophytes Diagnosis Right knee end-stage DJD Plan of Treatment Right total knee arthroplasty
[2017-02-22] VITALS (7 sets, daily range): BP systolic 118–145; BP diastolic 59–70; PULSE 60–64; TEMP 35.8–36.8; O2SAT 94–100
[~2017-02-22] VITALS: Ht 160 cm; Wt 71.3 kg
[2017-02-22] MEDS: TRANEXAMIC ACID INJ 1,000 MG in SODIUM CHLORIDE 0.9% 100ML 100 ML IV SCH ×2 (06:30→11:53)
[~2017-02-22 09:55] MED LIST changes: +ACETAMINOPHEN 500 MG TAB PO SCH; -ASPEC81 PO; +ASPI81TA28 PO; +ATOR-24 PO; +BUPIVACAINE 0.5 % 5 MG/1 ML PF 10ML VIAL ONE; +BUPIVACAINE/EPINEPHRINE 0.5% MPF 1:200,000 10 ML VIAL ONE; +CALC-20 PO; +CEFAZOLIN 1000MG/55 ML D5W 55 ML IV SCH; +CEFAZOLIN 1000MG/55 ML D5W IV SCH; +CLON2TAB3 PO; +CeleBREX 200 MG CAP PO SCH; +DEXAMETHASONE 4 MG TAB PO SCH; +DEXAMETHASONE SOD INJ 4 MG/ML VIAL ONE; +DICL1GEL12; -DOCU-94 PO; +FAMOTIDINE 20 MG TAB PO SCH; +FURO-85 PO; +GABA1CAP PO; +GABAPENTIN 300 MG CAP PO SCH; +LACTATED RINGER'S 1000ML 1,000 ML IV SCH; +LEVO100T PO; +LOSA1TAB PO; +LPR25 PO; +METOCLOPRAMIDE HCL 10 MG TAB PO SCH; +NRV/5 PO; +PANT1TAB48 PO; +PARO1TAB29 PO; +POTA10CA28 PO; +ROPIVACAINE 5MG/ML 30 ML 150 MG, BUPIVACAINE/EPINEPHR 0.5% MPF 30 ML, KETOROLAC TROMETH... INFIL SCH; +SODIUM CHLORIDE 0.9% 1000ML IV SCH; +SODIUM CHLORIDE 0.9% INJ 10 ML VIAL ONE; -TRAM-10 PO; -TYLOTC500 PO; +ULT50X PO
[2017-02-22] MEDS ORDERED: LIDOCAINE HCL 2% 2 ML VIAL (20MG/ML) ONE (10:37)
[2017-02-22] MEDS ORDERED: MIDAZOLAM HCL 1 MG/ML 2ML VIAL ONE (10:37)
[2017-02-22] MEDS ORDERED: PROPOFOL IV EMULSION 10 MG/ML 20 ML VIAL IV ONE (10:37)
--- NOTE | 2017-02-22 11:48 | History & Physical Bridge Note ---
H&P Re-Evaluation Bridge Note: I have examined the patient, reviewed the History & Physical and in the interval since the performance of the History & Physical I have noted the following changes of clinical significance: No changes noted
[2017-02-22] MEDS ORDERED: ORTHO JOINT ANESTHETIC ONE (11:57)
[2017-02-22] MEDS ORDERED: POVIDONE-IODINE OP SOLN 30 ML BTL ONE (11:57)
[2017-02-22] MEDS ORDERED: BACITRACIN 50000 UNIT VIAL ONE (11:57)
[2017-02-22] MEDS ORDERED: ATROPINE SULFATE 0.1 MG/ML 5ML SYR IV PRN (12:00)
[2017-02-22] MEDS ORDERED: EpHEDrine SULFATE INJ 50 MG/ML AMP IV PRN (12:00)
[2017-02-22] MEDS ORDERED: PROMETHAZINE HCL INJ 6.25 MG in SODIUM CHLORIDE 0.9% 50ML 50 ML IV PRN (12:00)
[2017-02-22] MEDS ORDERED: ONDANSETRON INJ 2 MG/ML 2 ML VIAL IV PRN ×2 (12:00→14:00)
[2017-02-22] MEDS ORDERED: FENTANYL CITRATE INJ 50 MCG/1 ML 2 ML VIAL IV PRN (12:00)
[2017-02-22] MEDS ORDERED: BISACODYL 10 MG SUPP PR PRN (14:00)
[2017-02-22] MEDS ORDERED: ZOLPIDEM TARTRATE 5 MG TAB PO PRN (14:00)
[2017-02-22] MEDS ORDERED: MAGNESIUM HYDROXIDE SUSP 30 ML UDC PO PRN (14:00)
[2017-02-22] MEDS ORDERED: ACETAMINOPHEN 325 MG TAB PO PRN (14:00)
[2017-02-22] MEDS ORDERED: OXYCODONE HCL IR 5 MG TAB (IMMEDIATE RELEASE) PO PRN (14:00)
[2017-02-22] MEDS ORDERED: TRAMADOL HCL 50 MG TAB PO PRN (14:00)
[2017-02-22] MEDS ORDERED: SOD PHOSPHATE/SOD BIPHOSPHATE ENEMA 132 ML BTL PR PRN (14:00)
[2017-02-22] MEDS ORDERED: ALUMINUM/MAGNESIUM/SIMETH (MAALOX MAX) 30 ML UDC PO PRN (14:00)
--- NOTE | 2017-02-22 14:38 | DIAGNOSTIC IMAGING REPORT ---
RIGHT KNEE 1 OR 2 VIEWS ROUTINE CLINICAL HISTORY: Postop examination COMPARISON: None. DISCUSSION: There are postsurgical changes of a total right knee arthroplasty and patellar resurfacing. The femoral and tibial components appear well seated. Overlying surgical drains are evident. There is air within soft tissues consistent with recent surgery IMPRESSION: Postsurgical changes of a total right knee arthroplasty. Electronically signed by: James Mosqueda M.D. 02/22/2017 2:36 PM Dictated Date/Time: 02/22/2017 2:36 PM
--- NOTE | 2017-02-22 15:15 | Anesthesiology Progress Note ---
Anesthesia Post Op Note Date & Time Feb 22, 2017 at 15:15 Vital Signs Pain Intensity: 0 Vital Signs Past 12 Hours Date Time Temp Pulse Resp B/P (MAP) Pulse Ox O2 Delivery O2 Flow Rate FiO2 02/22/17 15:00 36.8 64 16 113/51 98 Nasal Cannula 3 02/22/17 14:45 36.8 66 16 132/58 98 Nasal Cannula 3 02/22/17 14:30 36.8 60 16 114/52 96 Nasal Cannula 3 02/22/17 14:15 69 16 110/54 98 Nasal Cannula 3 02/22/17 14:05 72 16 122/52 95 Nasal Cannula 3 02/22/17 13:55 36.1 71 16 142/47 95 Nasal Cannula 3 02/22/17 13:55 36.1 02/22/17 10:55 36.8 60 18 145/70 94 Room Air Notes Mental Status: alert / awake / arousable, participated in evaluation Pt Amnestic to Procedure: Yes Nausea / Vomiting: adequately controlled Pain: adequately controlled Airway Patency, RR, SpO2: stable & adequate BP & HR: stable & adequate Hydration State: stable & adequate Neuraxial Anesthesia: was administered, sensory block is resolving Anesthetic Complications: no major complications apparent
[2017-02-22] MEDS: KETOROLAC TROMETHAMINE 15 MG/ML VIAL IV. SCH ×2 (16:22→22:25)
[2017-02-22] MEDS: SODIUM CHLORIDE 0.9% 1000ML 1,000 ML IV SCH ×2 (16:23→23:56)
[2017-02-22] MEDS: CEFAZOLIN IV 2,000 MG in DEXTROSE 5% 50ML 50 ML IV SCH (20:25)
[2017-02-22] MEDS: CLONAZEPAM 1 MG TAB PO SCH (21:00)
[2017-02-22] MEDS: LOSARTAN POTASSIUM 25 MG TAB PO SCH (22:22)
[2017-02-22] MEDS: ASPIRIN 81 MG ECTAB PO SCH (22:22)
[2017-02-22] MEDS: GABAPENTIN 100 MG CAP PO SCH (22:24)
[2017-02-22] MEDS: ATORVASTATIN 40 MG TAB PO SCH (22:24)
[2017-02-22] MEDS: SENNA 8.6 MG TAB PO SCH (22:25)
[2017-02-23] VITALS (9 sets, daily range): BP systolic 120–167; BP diastolic 58–70; PULSE 58–71; TEMP 36.3–36.8; O2SAT 95–97
[2017-02-23] MEDS: KETOROLAC TROMETHAMINE 15 MG/ML VIAL IV. SCH (04:27)
[2017-02-23] MEDS: CEFAZOLIN IV 2,000 MG in DEXTROSE 5% 50ML 50 ML IV SCH (04:27)
[2017-02-23] MEDS: LEVOTHYROXINE 100 MCG TAB PO SCH (05:31)
--- NOTE | 2017-02-23 06:51 | Clinical Documentation Query ---
CLINICAL DOCUMENTATION QUERY This patient EMR reflects that this patient juan m to the OR and had a joint replacement to the right knee. However, No operative record or note exists. In your clinical opinion is this patient being managed for: ( X ) Replacement of Right Knee Joint with Synthetic Substitute, Cemented, Open Approach- if so please document surgical procedure ( ) Other explanation of clinical findings (Please Explain) ( ) Unable to determine (Please Define) ( ) Need to Discuss ( ) Not Agree Please clarify and document your clinical opinion in the progress notes and discharge summary. Terms such as "probable", "suspected", "likely", "questionable", "possible", or "still to be ruled out" are acceptable. IF IN AGREEMENT, YOU MUST DOCUMENT ABOVE DIAGNOSTIC STATEMENT IN DAILY PROGRESS NOTES AND DISCHARGE SUMMARY. This document is not part of the patient's record. Thank You, Chase Edmonds, ROGER [phone]
[2017-02-23 07:10] LABS: HEMATOCRIT 31.6 % (37-47); MEAN CELL VOLUME 98.8 fL (80-100); MEAN CORPUSCULAR HEMOGLOBIN 31.3 pg (25-34); MEAN CORPUSCULAR HGB CONC 31.6 g/dl (32-36); MEAN PLATELET VOLUME 10.5 fL (7.4-10.4); PLATELET COUNT 520 K/uL (130-400); WHITE BLOOD COUNT 14.84 K/uL (4.8-10.8)
[2017-02-23] MEDS ORDERED: DEXAMETHASONE 4 MG TAB PO SCH (07:30)
[2017-02-23 07:40] LABS: CALCIUM 8.4 mg/dl (8.5-10.1); POTASSIUM 4.2 mmol/L (3.5-5.1)
--- NOTE | 2017-02-23 08:13 | Anesthesiology Progress Note ---
Anesthesia Post Op Note Date & Time Feb 23, 2017 at 08:12 Vital Signs Pain Intensity: 0.0 Vital Signs Past 12 Hours Date Time Temp Pulse Resp B/P (MAP) Pulse Ox O2 Delivery O2 Flow Rate FiO2 02/23/17 08:03 36.3 60 9 150/58 (88) 97 Room Air 02/23/17 07:57 Room Air 02/23/17 05:34 36.5 02/23/17 03:48 36.3 71 14 120/65 (83) 95 Room Air 02/23/17 00:05 61 97 Room Air 02/22/17 23:55 Room Air 02/22/17 23:25 36.4 62 14 130/67 (88) 99 Nasal Cannula 3.0 02/22/17 21:30 Nasal Cannula 3.0 Notes Mental Status: alert / awake / arousable, participated in evaluation Pt Amnestic to Procedure: Yes Nausea / Vomiting: adequately controlled Pain: adequately controlled Airway Patency, RR, SpO2: stable & adequate BP & HR: stable & adequate Hydration State: stable & adequate Neuraxial Anesthesia: was administered, sensory block resolved Anesthetic Complications: no major complications apparent
--- NOTE | 2017-02-23 08:14 | Orthopedic Progress Note ---
Orthopedic Progress Note Date of Service Feb 23, 2017. Subjective Post OP Day: 1 Reports: feeling well, Denies: chest pain, SOB, nausea / vomiting, light headedness, calf pain Objective calves soft nontender, N/V intact, dressing C/D/I, A&O x3, hemovac drainage (125 /125CC PER SHIFT) Date Time Temp Pulse Resp B/P (MAP) Pulse Ox O2 Delivery O2 Flow Rate FiO2 02/23/17 08:03 36.3 60 9 150/58 (88) 97 Room Air 02/23/17 07:57 Room Air 02/23/17 05:34 36.5 02/23/17 03:48 36.3 71 14 120/65 (83) 95 Room Air 02/23/17 00:05 61 97 Room Air 02/22/17 23:55 Room Air 02/22/17 23:25 36.4 62 14 130/67 (88) 99 Nasal Cannula 3.0 02/22/17 21:30 Nasal Cannula 3.0 02/22/17 18:22 35.8 63 16 128/61 (83) 100 Nasal Cannula 3.0 02/22/17 17:24 36.4 60 14 131/59 (83) 100 Nasal Cannula 02/22/17 16:17 36.2 64 16 128/63 (84) 97 Nasal Cannula 3.0 02/22/17 15:48 36.3 60 16 118/59 (78) 99 Nasal Cannula 3.0 02/22/17 15:39 97 Room Air 3.0 02/22/17 15:20 36.3 16 126/60 (82) 97 Nasal Cannula 3.0 02/22/17 15:00 36.8 64 16 113/51 98 Nasal Cannula 3 02/22/17 14:45 36.8 66 16 132/58 98 Nasal Cannula 3 02/22/17 14:30 36.8 60 16 114/52 96 Nasal Cannula 3 02/22/17 14:15 69 16 110/54 98 Nasal Cannula 3 02/22/17 14:05 72 16 122/52 95 Nasal Cannula 3 02/22/17 13:55 36.1 71 16 142/47 95 Nasal Cannula 3 02/22/17 13:55 36.1 02/22/17 10:55 36.8 60 18 145/70 94 Room Air Laboratory Results 24 Hours: Test 02/23/17 06:45 Hematocrit 31.6 % Hemoglobin 10.0 g/dL Additional Notes: Item Value Date Time Blood Urea Nitrogen 52 mg/dl H 02/23/17644 Creatinine 2.00 mg/dl H 02/23/17 0645 Assessment & Plan Assessment: POD#1 SP RIGHT TKA Plan: DC NSAIDS XARELTO CONTRAINDICATED DUE TO CREAT. CLEARANCE. OK TO DO ASA 81MG BID PER [facility] Inhouse Planning Pain Management: PO Tylenol, Oxy IR DVT Prophylaxis: TEDs, SCDs, ASA Discharge Planning Discharge Planning: home with home health (POSSIBLE DC HOME WEDNESDAY)
[2017-02-23] MEDS: ASPIRIN 81 MG ECTAB PO SCH ×2 (08:35→20:59)
[2017-02-23] MEDS: FUROSEMIDE 40 MG TAB PO SCH (08:35)
[2017-02-23] MEDS: GABAPENTIN 100 MG CAP PO SCH ×2 (08:35→20:55)
[2017-02-23] MEDS: METOPROLOL TARTRATE 25 MG TAB PO SCH (08:35)
[2017-02-23] MEDS: LOSARTAN POTASSIUM 25 MG TAB PO SCH ×2 (08:36→20:58)
[2017-02-23] MEDS: POTASSIUM CHLORIDE 10 MEQ TABCR PO SCH (08:36)
[2017-02-23] MEDS: MULTIVITAMIN TAB PO SCH (08:36)
[2017-02-23] MEDS: CALCIUM 600MG + VIT D 400 IU TAB PO SCH (08:36)
[2017-02-23] MEDS: PAROXETINE 20 MG TAB PO SCH (08:36)
[2017-02-23] MEDS: AMLODIPINE BESYLATE 5 MG TAB PO SCH (08:37)
[2017-02-23] MEDS: PANTOprazole SOD 40 MG TAB PO SCH (08:37)
[2017-02-23] MEDS ORDERED: RIVAROXABAN 20 MG TAB PO SCH (09:00)
[2017-02-23] MEDS ORDERED: PANTOprazole SOD 40 MG TAB PO SCH (09:00)
[2017-02-23] MEDS: SODIUM CHLORIDE 0.9% 1000ML 1,000 ML IV SCH (09:11)
--- NOTE | 2017-02-23 15:31 | [facility] Operative Report ---
Operative Report Operative Date Feb 23, 2017. Pre-Operative Diagnosis Right Knee Degenerative Joint Disease Post-Operative Diagnosis same as pre-operative Procedure(s) Performed Right Total Knee Arthroplasty patient's right leg was prepped and draped in the usual sterile manner. Limb was exsanguinated with an Esmarch bandage and tourniquet was inflated to 250 mmHg. Longitudinal incision was made median parapatellar incision made sows everted and he was flexed. Fat pad was removed and the proximal medial face of the tibia was cleared of soft tissue using electrocautery Knott elevator. That she'll intramedullary alignment guide was used reattached tibial cut. This bone fragment was removed. Next attention turned distal femur where a drill was used to get axis to the femoral canal intramedullary alignment is utilized and the distal femoral cut was made. The chamfer cuts were made using #2 cutting block. Next the notch was prepared with the appropriate guide. Meniscal remnants were used were removed sharply and the tibial baseplate was placed. Size 2 tibia was chosen size to be used. The tibia was prepared using the drill and punch and a mallet and trial reduction was carried out and a size 11 polyethylene was chosen size to be used. Next attention to the patella patella was reamed with a patellar reaming blade size 36 patella was chosen size views. The 3 drill holes were made for the patella pegs. All trials removed the joint mix was injected throughout the knee the bone plug was prepared and impacted into the tibia the femoral canal and the cement was mixed knee was thoroughly irrigated with pulsatile irrigation and final hemostasis using a ligamentous was obtained. The final components were cemented in position all excess cement was removed extensionwhilecementhardenedfollowinghardeningofthecementthekneewasclosedov erdrainmammographiesclosealignmentextensormechanismsubcutaneoustissueexclus ionofdidn'tDexonandtheskinwasclosedwithasipstripassistantwasthoroughlyshewa sessentialthroughallcomponentsofthecaseincludingpositioningpreppingdrapings urgicalcystwoundclosureanddressingapplication. Surgeon Dr. Ezequiel Liz Brake Holder Surgeon(s) Natasha Wilson PA-C Estimated Blood Loss 10ml Specimens A: Right knee bone and tissue I attest to the content of the Intraoperative Record and any orders documented therein. Any exceptions are noted below.
[2017-02-23] MEDS ORDERED: RXC5 PO (16:35)
[2017-02-23] MEDS ORDERED: SNK PO (16:35)
[2017-02-23] MEDS ORDERED: ASPI81TA28 PO (16:35)
[2017-02-23] MEDS ORDERED: ACET-24 PO (16:36)
--- NOTE | 2017-02-23 16:40 | Discharge Instructions ---
Discharge Instructions Date of Service Feb 23, 2017. Admission Reason for Admission: Right Knee Osteoarthritis Discharge Discharge Diagnosis / Problem: Right KNee Djd Discharge Goals Goal(s): Decrease discomfort, Improve function Activity Recommendations Activity Limitations: per Instructions/Follow-up section Weightbearing Status: Right weightbearing (as tolerated) . Instructions / Follow-Up Instructions / Follow-Up ACTIVITY RECOMMENDATIONS: SELF CARE INSTRUCTIONS AFTER TOTAL KNEE REPLACEMENT A. You may need to continue a physical therapy program after discharge from the hospital. There are several options available to you. Your doctor will assist you in selecting the best one for you. 1. An out-patient facility 2 to 3 times a week for therapy or home therapy. 2. Continue working on all exercises taught to you in the hospital. Your goals should be to increase bending of your knee to 90 degrees and beyond and to fully straighten your knee. B. You may progress at your own pace from walking with a walker or crutches to a cane; then to no assistive devices. C. Make walking a part of your daily routine. Be up as much as comfortable with rest periods throughout the day. Rest with leg elevation is very important. Use the ice wrap frequently for the first 3-4 weeks. D. There are no restrictions on activities. You may ride in a car, shop, participate in interior design principal and all social activities. E. Wear the long elastic stockings (GEOFF hose) 20 hours a day for 2 weeks after surgery. They can be removed several times a day for laundering and for a bath. F. You may shower, no tub baths until cleared by your doctor. SPECIAL CARE INSTRUCTIONS: VERY IMPORTANT TO READ AND REVIEW A. There are a few signs you need to watch for after you are home. Call [facility] if you notice any of the followin. Increased severe knee pain. Some pain is expected especially when you exercise. 2. Increased swelling in your leg or knee; pain or swelling of the calf muscle in either lower leg. 3. Any fluid drainage from the incision. 4. Shortness of breath or chest pain. B. Please call [facility] at if you have any concerns or questions about your operation or recovery. The doctor or his nurse will return your call promptly. C. You must take antibiotics before dental work, bladder, bowel or other surgery. Your doctor will provide you with a permanent care to carry describing this precaution. IMPORTANT: * REMEMBER TO TAKE ASPIRIN, 81 MG, TWICE DAILY FOR 4 WEEKS UNLESS OTHERWISE DIRECTED. THIS IS YOUR BLOOD THINNER. * HIGH RISK PATIENTS MAY BE PRESCRIBED A STRONGER BLOOD THINNER. THIS WILL BE PROVIDED AT DISCHARGE. * CALL IF INCREASED PAIN, REDNESS, DRAINAGE OR FEVER GREATER THAT 101. * WEAR GEOFF HOSE 20 HOURS PER DAY FOR 2 WEEKS. * .[place] . FOLLOW UP VISIT: If appointment is not already scheduled: Please call [facility] to make a follow-up appointment for 2 weeks after your surgery at . FOLLOW UP WITH YOUR PRIMARY CARE PHYSICIAN IN 1 WEEK. Current Hospital Diet Patient's current hospital diet: Diabetes Type 2 Diet Discharge Diet Recommended Diet: Diabetes Type 2 Diet Procedures Procedures Performed: Right Total Knee Arthroplasty patient's right leg was prepped and draped in the usual sterile manner. Limb was exsanguinated with an Esmarch bandage and tourniquet was inflated to 250 mmHg. Longitudinal incision was made median parapatellar incision made sows everted and he was flexed. Fat pad was removed and the proximal medial face of the tibia was cleared of soft tissue using electrocautery Knott elevator. That she'll intramedullary alignment guide was used reattached tibial cut. This bone fragment was removed. Next attention turned distal femur where a drill was used to get axis to the femoral canal intramedullary alignment is utilized and the distal femoral cut was made. The chamfer cuts were made using #2 cutting block. Next the notch was prepared with the appropriate guide. Meniscal remnants were used were removed sharply and the tibial baseplate was placed. Size 2 tibia was chosen size to be used. The tibia was prepared using the drill and punch and a mallet and trial reduction was carried out and a size 11 polyethylene was chosen size to be used. Next attention to the patella patella was reamed with a patellar reaming blade size 36 patella was chosen size views. The 3 drill holes were made for the patella pegs. All trials removed the joint mix was injected throughout the knee the bone plug was prepared and impacted into the tibia the femoral canal and the cement was mixed knee was thoroughly irrigated with pulsatile irrigation and final hemostasis using a ligamentous was obtained. The final components were cemented in position all excess cement was removed extensionwhilecementhardenedfollowinghardeningofthecementthekneewasclosedov erdrainmammographiesclosealignmentextensormechanismsubcutaneoustissueexclus ionofdidn'tDexonandtheskinwasclosedwithasipstripassistantwasthoroughlyshewa sessentialthroughallcomponentsofthecaseincludingpositioningpreppingdrapings urgicalcystwoundclosureanddressingapplication. Pending Studies Studies pending at discharge: no Laboratory Results Hemoglobin A1c Test 02/05/17 14:30 Range/Units Estimated Average Glucose 137 mg/dl Hemoglobin A1c 6.4 H 4.5-5.6 % Lipid Panel Test 12/22/16 06:27 Range/Units Triglycerides Level 108 0-150 mg/dl Cholesterol Level 167 0-200 mg/dl HDL Cholesterol 61 mg/dl Cholesterol/HDL Ratio 2.7 LDL Cholesterol, Calculated 84 mg/dl Medical Emergencies . Who to Call and When: Medical Emergencies: If at any time you feel your situation is an emergency, please call 911 immediately. . Non-Emergent Contact Non-Emergency issues call your: Surgeon Call Non-Emergent contact if: temperature is above 101.5, your pain is not controlled, your pain is worsening, wound has increased drainage, wound has increased redness . "Provider Documentation" section prepared by Ulises Cunningham. . VTE Core Measure Inpt VTE Proph given/why not?: Other Anticoagulation, T.E.D. Stockings, SCD's [place] Drug Monitoring Program Search Results: patient reviewed within database, no issues identified
[2017-02-23] MEDS ORDERED: CeleBREX 200 MG CAP PO SCH (21:00)
[2017-02-23] MEDS: CLONAZEPAM 1 MG TAB PO SCH (21:00)
[2017-02-23] MEDS: SENNA 8.6 MG TAB PO SCH (21:40)
[2017-02-23] MEDS: ATORVASTATIN 40 MG TAB PO SCH (21:41)
[2017-02-24] MEDS: LEVOTHYROXINE 100 MCG TAB PO SCH (06:10)
[2017-02-24 06:42] VITALS: BP 165/65; PULSE 70; TEMP 36.9; O2SAT 96
--- NOTE | 2017-02-24 07:38 | Orthopedic Progress Note ---
Orthopedic Progress Note Date of Service Feb 24, 2017. Subjective Post OP Day: 2 Reports: feeling well, Denies: chest pain, SOB, nausea / vomiting, light headedness Additional Notes: States she had some pain last night but is feeling better today. Appears comfortable. Eating breakfast. Objective calves soft nontender, N/V intact, incision C/D/I, A&O x3, toes mobile Date Time Temp Pulse Resp B/P (MAP) Pulse Ox O2 Delivery O2 Flow Rate FiO2 02/24/17 06:42 36.9 70 15 165/65 (98) 96 Room Air 02/24/17 00:25 Room Air 02/23/17 23:31 36.8 60 16 149/70 (96) 96 Room Air 02/23/17 20:57 167/61 (96) 02/23/17 16:12 36.7 58 18 152/62 (92) 95 Room Air 02/23/17 15:20 Room Air 02/23/17 11:51 36.8 59 11 153/62 (92) 97 Room Air 02/23/17 08:33 97 Room Air 02/23/17 08:03 36.3 60 9 150/58 (88) 97 Room Air 02/23/17 07:57 Room Air Assessment & Plan Assessment: POD#2 SP RIGHT TKA Plan: NSAIDS DISCONTINUED XARELTO CONTRAINDICATED DUE TO CREAT. CLEARANCE. OK TO DO ASA 81MG BID PER [place] RECHECK PRP TODAY. POSSIBLE DC HOME TODAY Inhouse Planning Pain Management: Ultram, PO Tylenol, Oxy IR DVT Prophylaxis: TEDs, SCDs, ASA Discharge Planning Discharge Planning: home with home health (POSSIBLE DC HOME WEDNESDAY) Pain Management: PO Tylenol, Oxy IR DVT Prophylaxis: TEDs, ASA Therapy: Physical Therapy
[2017-02-24] MEDS: AMLODIPINE BESYLATE 5 MG TAB PO SCH (07:57)
[2017-02-24] MEDS: METOPROLOL TARTRATE 25 MG TAB PO SCH (07:57)
[2017-02-24] MEDS: PANTOprazole SOD 40 MG TAB PO SCH (07:57)
[2017-02-24] MEDS: MULTIVITAMIN TAB PO SCH (07:58)
[2017-02-24] MEDS: PAROXETINE 20 MG TAB PO SCH (07:58)
[2017-02-24] MEDS: CALCIUM 600MG + VIT D 400 IU TAB PO SCH (07:59)
[2017-02-24] MEDS: LOSARTAN POTASSIUM 25 MG TAB PO SCH (08:00)
[2017-02-24] MEDS: FUROSEMIDE 40 MG TAB PO SCH (08:01)
[2017-02-24] MEDS: POTASSIUM CHLORIDE 10 MEQ TABCR PO SCH (08:01)
[2017-02-24 08:08] VITALS: BP 150/56; PULSE 61; TEMP 36.8; O2SAT 97
[2017-02-24 08:10] LABS: HEMATOCRIT 31.7 % (37-47); MEAN CELL VOLUME 98.8 fL (80-100); MEAN CORPUSCULAR HEMOGLOBIN 30.8 pg (25-34); MEAN CORPUSCULAR HGB CONC 31.2 g/dl (32-36); PLATELET COUNT 512 K/uL (130-400); RED BLOOD COUNT 3.21 M/uL (4.2-5.4); WHITE BLOOD COUNT 12.58 K/uL (4.8-10.8)
[2017-02-24 08:14] VITALS: O2SAT 97
[2017-02-24 08:41] LABS: BUN/CREATININE RATIO 25.2 (10-20); CALCIUM 8.7 mg/dl (8.5-10.1); POTASSIUM 3.8 mmol/L (3.5-5.1)
[2017-02-24] MEDS: ASPIRIN 81 MG ECTAB PO SCH (09:45)
[2017-02-24] MEDS: GABAPENTIN 100 MG CAP PO SCH (09:45)
[2017-02-24 11:07] VITALS: BP 150/56; PULSE 61; TEMP 36.8; O2SAT 97
--- NOTE | 2017-03-05 08:19 | DISCHARGE SUMMARY ---
DISCHARGE DIAGNOSIS: Degenerative joint disease, right knee. SECONDARY DIAGNOSES: Kidney disease, type 2 diabetes. CONSULTS: None. COMPLICATIONS: None. PROCEDURE: The patient underwent a right total knee arthroplasty with Dr. Liz on 02/22/2017. BRIEF HISTORY: Please see previously dictated history and physical. HOSPITAL SUMMARY: The patient was admitted on the above day for the above procedure. Procedure went without complication. Postop day 1, the patient was feeling well without complaints. She denied chest pain or shortness of breath. Vital signs were stable. She was afebrile. Dressing was clean, dry and intact. She was neurovascularly intact. Calves were soft and nontender. Hemovac drained 125 mL for 2 shifts. Hemoglobin was 10.0, BUN was 52, creatinine was 2.0. The patient's anti-inflammatories were discontinued. Xarelto was contraindicated due to her creatinine clearance, she was placed on aspirin [address] Liz. Patient began physical therapy. Postop day 2, the patient doing fairly well. She had some pain overnight but is feeling better. She appeared comfortable and was eating her breakfast. Vital signs were stable. She was afebrile. Dressing was clean, dry and intact. She was neurovascularly intact. Calves were soft and nontender. The patient continued to progress with physical therapy. Labs were stable. She was discharged to home later that day in stable condition. For further review please see the chart. Lab, x-ray data and discharge instructions as per chart.
--- NOTE | 2017-03-15 15:01 | OPERATIVE REPORT ---
DATE OF OPERATION: 02/22/2017 PREOPERATIVE DIAGNOSIS: Osteoarthritis, right knee. POSTOPERATIVE DIAGNOSIS: Osteoarthritis, right knee. PROCEDURE: Right total knee arthroplasty. SURGEON: Dr. Liz. GENERAL MERCHANDISE MANAGER: Urbano Pinto PA-C ANESTHESIA: Spinal. COMPLICATIONS: None. IMPLANTS USED: Femoral size 2, tibia size 2, tibial poly 11, and patella size 36. OPERATION AND FINDINGS: Following induction of spinal anesthesia, the patient's right leg was prepped and draped in the usual sterile manner. Limb was exsanguinated with an Esmarch bandage and tourniquet was inflated to 350 mmHg. A longitudinal incision was made anteriorly. Subcutaneous tissue was sharply dissected. Electrocautery was used for hemostasis. Prepatellar bursa was incised and median parapatellar incision was performed. Patella was everted and the knee was flexed. Fat pad was removed to aid in visualization and the anterior and posterior cruciate ligaments were removed. The medial face of the tibia was cleared of soft tissue first with a Bovie and a Knott elevator. This tissue was retracted posteriorly using a blunt Hohmann. A Marino retractor was used to expose the synovium above on the anterior aspect of the femur and this was removed down to bone. The PSI guide was placed on the distal femur and two pins were placed anteriorly and kept in position and two additional pins were placed distally and removed. The distal femoral cutting block was placed in position and the distal femoral cut was used in the +0 setting. Next, the cutting block was removed and the femoral block was placed in the distal end of the femur. Care was taken to ensure appropriate external rotation and feeler gauge was used to ensure no notching would occur. The femoral block was centered on the distal femur and in the medial and lateral direction and was fixed using two bone screws. The gold pins were then removed. The oscillating saw was used to create the bone cuts and the distal femoral cutting block was removed and the reciprocating saw was used to further trim the femoral cuts as well as a deep in the area for the trochlear groove. Next, posterior condyle remnants were removed. Following this, a meniscal clamp and knife were utilized to remove the anterior portion of both medial and lateral meniscus. The proximal tibia PSI guide was placed into position and the proximal tibial cutting guide was screwed into position. The extra medullary alignment guide was utilized to ensure appropriate alignment. The proximal tibia was cut and the proximal tibial cutting block was removed and this bone fragment was removed. The appropriate guide was used to perform the notch cut on the distal femur and a lamina fisheries officer and a cochlear knife were utilized to finish both medial and lateral meniscectomies to remove any remnants of the posterior or anterior cruciate ligaments. Following this, the distal femoral component was impacted into position and blunt Amalia was used to sublux the tibia anteriorly. The proximal tibia was sized and a 2 tibial tray was chosen as the size to be used. This was put into position and appropriate external rotation and a double check with extramedullary alignment guide was performed. The canal for the tibial stem was prepared first with a 17 mm drill and then the punch and a mallet and the trial tibial poly was placed. An 11 was chosen the size to be used. It was brought to extension and the patella was prepared with the patellar reamer. A 36 component was chosen the size to be used. The trial component was placed and knee was taken through a full range of motion and there was found to be no lateral subluxation of the tibia. No lateral release was required. The trials were all removed. The final components were obtained and assembled. Cement was mixed. The knee was thoroughly irrigated and the ortho mix was injected about the knee joint. The final components were cemented into position. After thoroughly suctioning and drying the bone ends, all excess cement was removed. The knee was held in extension while the cement hardened. The wound was irrigated and closed over a Hemovac drain. #1 Vicryl was used to close the extensor mechanism. Subcutaneous tissues closed using 0 Dexon. Skin was closed with adithya. Sterile dressing of Adaptic, 4 x 4's, sterile Webril, and Darrion was applied. The patient tolerated the procedure well. Due to the complex nature of the procedure, the entire surgery was performed with the operational assistance of Urbano Pinto PA-C. The junior administrative assistant, under direct supervision, was involved in the actual performance of all aspects of the surgical procedure including hemostasis, tissue retraction and incision, instrument management, patient positioning, and wound closure. DISPOSITION: Recovery room stable. I attest to the content of the Intraoperative Record and any orders documented therein. Any exception s are noted below.
== END 2017-02-24 11:47 | disposition home health service (06) | DRG 470 ==
LOC: C.ACU 09:55 → C.3E 10:20 → ENRESERV 15:00
PROC: 0SRC0J9 Replacement of Right Knee Joint with Synthetic Substitute, Cemented, Open Approach (ICD-10-PCS; principal; 2017-02-23)
DX: M17.11 Unilateral primary osteoarthritis, right knee (principal); I13.0 Hypertensive heart and chronic kidney disease with heart failure and stage 1 through stage 4 chronic kidney disease, or unspecified chronic kidney disease; N18.4 Chronic kidney disease, stage 4 (severe); M21.161 Varus deformity, not elsewhere classified, right knee; I25.10 Atherosclerotic heart disease of native coronary artery without angina pectoris; I50.9 Heart failure, unspecified; E11.22 Type 2 diabetes mellitus with diabetic chronic kidney disease; E78.5 Hyperlipidemia, unspecified; F41.9 Anxiety disorder, unspecified; F32.9 Major depressive disorder, single episode, unspecified; Z95.0 Presence of cardiac pacemaker; Z95.1 Presence of aortocoronary bypass graft; Z95.5 Presence of coronary angioplasty implant and graft; Z96.652 Presence of left artificial knee joint; Z87.891 Personal history of nicotine dependence; Z79.82 Long term (current) use of aspirin; Z79.891 Long term (current) use of opiate analgesic; Z79.899 Other long term (current) drug therapy

== ENCOUNTER → 2017-02-26 | Outpatient (CLI) | payer OTHER ==
[~2017-02-26] MED LIST changes: +ACET-24 PO; -ACETAMINOPHEN 500 MG TAB PO SCH; -BUPIVACAINE 0.5 % 5 MG/1 ML PF 10ML VIAL ONE; -BUPIVACAINE/EPINEPHRINE 0.5% MPF 1:200,000 10 ML VIAL ONE; -CEFAZOLIN 1000MG/55 ML D5W 55 ML IV SCH; -CEFAZOLIN 1000MG/55 ML D5W IV SCH; -CeleBREX 200 MG CAP PO SCH; -DEXAMETHASONE 4 MG TAB PO SCH; -DEXAMETHASONE SOD INJ 4 MG/ML VIAL ONE; -FAMOTIDINE 20 MG TAB PO SCH; -GABAPENTIN 300 MG CAP PO SCH; -LACTATED RINGER'S 1000ML 1,000 ML IV SCH; -METOCLOPRAMIDE HCL 10 MG TAB PO SCH; -ROPIVACAINE 5MG/ML 30 ML 150 MG, BUPIVACAINE/EPINEPHR 0.5% MPF 30 ML, KETOROLAC TROMETH... INFIL SCH; +RXC5 PO; +SNK PO; -SODIUM CHLORIDE 0.9% 1000ML IV SCH; -SODIUM CHLORIDE 0.9% INJ 10 ML VIAL ONE
[2017-02-26 15:09] LABS: BLOOD UREA NITROGEN 42 mg/dl (7-18); BUN/CREATININE RATIO 26.5 (10-20); CALCIUM 8.7 mg/dl (8.5-10.1); CARBON DIOXIDE 26 mmol/L (21-32); CHLORIDE 106 mmol/L (98-107); GLUCOSE 126 mg/dl (70-99); POTASSIUM 4.3 mmol/L (3.5-5.1); SODIUM 139 mmol/L (136-145)
--- NOTE | 2017-02-28 10:06 | CODING QUERY NO DIAGNOSIS ---
Valid Physician Order Needed A valid physician order must be submitted in order to properly bill for the service(s) provided, including date of service(s), valid diagnosis, and physician signature. If these tests are done on a recurring basis the original physician order must be submitted in order to code and bill for the service(s) provided. Please fax us the original, signed physician order so that we may expedite billing to [phone] DOS 02/26 * PRP Thank you Iris [facility] Health Information Management
== END | disposition home or self-care (01) ==
LOC: C.LABSPEC 14:19
PROVIDERS: ATTEND Internal Medicine Cardiovascular Disease
DX: Z47.1 Aftercare following joint replacement surgery (principal); Z96.60 Presence of unspecified orthopedic joint implant